=== PATIENT | female | born 1945 | race African-American/Black ===

== ENCOUNTER 2019-02-01 16:14 | Emergency (ER) | payer OTHER ==
[2019-02-01 17:27] LABS: Absolute Lymphocytes (CBC) 1.6 K/uL (0.7-4.9); Basophils % 0.5 % (0-1.3); Hematocrit 33.1 % (36.0-45.0); Lymphocytes % 15.3 % (15.3-44.8); RBC Red Blood Cell Count 3.56 M/uL (3.86-4.86)
[2019-02-01 17:33] LABS: Protime INR 2.31
[2019-02-01 17:47] LABS: Albumin 3.2 g/dL (3.4-5.0); Bilirubin Direct 0.3 mg/dL (0-0.2); Bilirubin Total 0.9 mg/dL (0.2-1.0); Magnesium 1.9 mg/dL (1.8-2.4); Potassium 4.1 mmol/L (3.5-5.1); Protein, Total 7.3 g/dL (6.4-8.2)
--- NOTE | 2019-02-01 19:23 | RAD REPORT ---
EXAM DESCRIPTION: Compa Single View02/01/2019 6:58 pm CLINICAL HISTORY: Shortness of breath COMPARISON: 2016 FINDINGS: Scoliosis involves the thoracolumbar spine The lungs appear clear of acute infiltrate. The heart is mildly enlarged
--- NOTE | 2019-02-01 21:08 | RAD REPORT ---
EXAM DESCRIPTION: US - Extremity Nonvascular Limited - 02/01/2019 7:20 pm CLINICAL HISTORY: Right groin pain and swelling COMPARISON: None FINDINGS: 3 centimeter heterogeneous fluid collection within the right groin likely represents a hem atoma. No flow is seen within this. IMPRESSION: 3 centimeter heterogeneous fluid collection likely a hematoma within the right groin
--- NOTE | 2019-02-01 21:09 | ER ---
Nurse's Notes [facility] Name: Mariluz Pastor Age: 73 yrs Sex: Female : 1945 Arrival Date: 02/01/2019 Time: 16:17 Bed 7 Private MD: Vasile Ochoa B Diagnosis: Localized swelling, mass and lump, lower limb-right groin hematoma Presentation: 02/01 16:28 Presenting complaint: Right groin pain and bruising after grin accessed during stroke hb eval 01/24. Transition of care: patient was not received from another setting of care. Onset of symptoms was February 01, 2019. Risk Assessment: Do you want to hurt yourself or someone else? Patient reports no desire to harm self or others. Initial Sepsis Screen: Does the patient meet any 2 criteria? No. Patient's initial sepsis screen is negative. Does the patient have a suspected source of infection? No. Patient's initial sepsis screen is negative. Care prior to arrival: None. 16:28 Method Of Arrival: Wheelchair hb 16:28 Acuity: VALENTIN 3 hb Triage Assessment: 16:41 General: Appears in no apparent distress. comfortable, obese, Behavior is calm, bp cooperative, appropriate for age. Pain: Complains of pain in right femoral area. EENT: No deficits noted. Neuro: No deficits noted. Cardiovascular: No deficits noted. Respiratory: No deficits noted. GI: No signs and/or symptoms were reported involving the gastrointestinal system. : No signs and/or symptoms were reported regarding the genitourinary system. Derm: No deficits noted. Musculoskeletal: No deficits noted. Historical: - Allergies: 16:31 No Known Allergies; hb - PSHx: 16:31 Hip SX; hb - Immunization history:: Adult Immunizations up to date. - Social history:: Smoking status: Patient/guardian denies using tobacco. - Ebola Screening: : No symptoms or risks identified at this time. Screenin:42 Abuse screen: Denies threats or abuse. Denies injuries from another. Nutritional bp screening: No deficits noted. Tuberculosis screening: No symptoms or risk factors identified. Fall Risk None identified. Assessment: 16:41 General: SEE TRIAGE NOTE. bp 18:24 Reassessment: Patient and/or family updated on plan of care and expected duration. Pain bp level reassessed. Patient is alert, oriented x 3, equal unlabored respirations, skin warm/dry/pink. ALL CURRENT ORDERS COMPLETED, U/S RESULTS PENDING. 19:21 General: Appears in no apparent distress. Behavior is calm, cooperative, appropriate bp for age. Pain: Denies pain. Neuro: Level of Consciousness is awake, alert, obeys commands, Oriented to person, place, time. Cardiovascular: Patient's skin is warm and dry. Respiratory: Airway is patent. Derm: Reports pt reports she had a femoral cath done recently and has been having pain in the area. Musculoskeletal: Circulation, motion, and sensation intact. 20:32 Reassessment: Patient and/or family updated on plan of care and expected duration. Pain ea level reassessed. Patient is alert, oriented x 3, equal unlabored respirations, skin warm/dry/pink. 21:55 Reassessment: Patient and/or family updated on plan of care and expected duration. Pain bb level reassessed. Patient is alert, oriented x 3, equal unlabored respirations, skin warm/dry/pink. pt verbalized understanding of and agrees to plan of care discharge instructions given pt assisted to exit via wheelchair accompanied by family. Vital Signs: 16:30 BP 106 / 70; Pulse 89; Resp 16; Temp 98.5; Pulse Ox 100% on R/A; Weight 83.91 kg; hb Height 5 ft. (152.40 cm); Pain 5/10; 17:33 BP 110 / 81; Pulse 93; Resp 16; Pulse Ox 98% ; bp 18:23 BP 100 / 81; Pulse 90; Resp 16; Pulse Ox 98% ; bp 19:23 BP 131 / 99; Pulse 94; Resp 18; Pulse Ox 99% on R/A; bp 20:32 BP 100 / 56; Pulse 93; Resp 18; Pulse Ox 99% on R/A; ea 21:56 BP 116 / 87; Pulse 99; Resp 16 S; Temp 97.7(O); Pulse Ox 100% on R/A; bb 16:30 Body Mass Index 36.13 (83.91 kg, 152.40 cm) hb ED Course: 16:17 Patient arrived in ED. as 16:17 Vasile Ochoa MD is Private Physician. as 16:30 Triage completed. hb 16:30 Arm band placed on. hb 16:37 James Armas PA is PHCP. cp 16:37 James Sinclair MD is Attending Physician. cp 16:37 Elian Jarvis, RN is Primary Nurse. bp 16:42 Patient has correct armband on for positive identification. Placed in gown. Bed in low bp position. Call light in reach. Side rails up X2. Adult w/ patient. 17:12 Ultrasound completed. lc3 17:15 Inserted saline lock: 22 gauge in right antecubital area, using aseptic technique. bp Blood collected. 17:39 US Extrmty Nonvasular Limited: history of femoral cath 1 week ago In Process EDMS Unspecified. 18:58 XRAY Chest (1 view) In Process Unspecified. EDMS 21:07 Neel Goyal MD is Referral Physician. cp 21:57 No provider procedures requiring assistance completed. IV discontinued, intact, bb bleeding controlled, No redness/swelling at site. Pressure dressing applied. Administered Medications: No medications were administered Outcome: 21:08 Discharge ordered by MD. cp 21:57 Discharged to home via wheelchair, with family. bb 21:57 Condition: stable 21:57 Discharge instructions given to patient, Instructed on discharge instructions, follow up and referral plans. no driving heavy equipment, medication usage, Demonstrated understanding of instructions, follow-up care, medications, Prescriptions given X 1. 21:57 Patient left the ED. bb Signatures: Dispatcher [employer] Traci Zendejas Brenda, RN RN James De Leon PA PA cp Cunningham, Laulita [id number] Baxter, Heather, RN RN hb Antunez, Elena, RN RN ea Peltier, Brian, RN RN bp
--- NOTE | 2019-02-01 21:09 | EDPHYS ---
Physician Documentation [facility] Name: Mariluz Pastor Age: 73 yrs Sex: Female : 1945 Arrival Date: 02/01/2019 Time: 16:17 Bed 7 Private MD: Vasile Ochoa B ED Physician James Sinclair HPI: 02/01 17:10 This 73 yrs old Black Female presents to ER via Wheelchair with complaints of Groin cp Pain. 17:11 The patient presents with pain, that is acute, swelling, tenderness, ecchymosis. The cp complaints affect the right femoral area and right groin. Associated signs and symptoms: Pertinent positives: warmth, ecchymosis, Pertinent negatives fever, numbness. Treatment prior to arrival includes: no previous treatment. Severity of symptoms: in the emergency department the symptoms are unchanged, despite home interventions. 17:21 Context: Patient was hospitalized at [facility] 1 week ago for stroke and had cp right femoral catheterization procedure. Patient reports increasing swelling, pain and ecchymosis to right groin area. Historical: - Allergies: 16:31 No Known Allergies; hb - PSHx: 16:31 Hip SX; hb - Immunization history:: Adult Immunizations up to date. - Social history:: Smoking status: Patient/guardian denies using tobacco. - Ebola Screening: : No symptoms or risks identified at this time. ROS: 17:15 Eyes: Negative for injury, pain, redness, and discharge. cp 17:15 Constitutional: Negative for body aches, chills, fever, poor PO intake. 17:15 ENT: Negative for drainage from ear(s), ear pain, sore throat, difficulty swallowing, difficulty handling secretions. 17:15 Cardiovascular: Negative for chest pain, palpitations. 17:15 Respiratory: Negative for cough, shortness of breath, wheezing. 17:15 Abdomen/GI: Negative for abdominal pain, nausea, vomiting, and diarrhea, black/tarry stool, rectal bleeding. 17:15 Back: Negative for pain at rest, pain with movement, radiated pain. 17:15 : Negative for urinary symptoms. 17:15 MS/extremity: Positive for ecchymosis, pain, swelling, tenderness, of the right femoral area and right groin, Negative for injury or acute deformity, decreased range of motion, paresthesias. 17:15 Neuro: Negative for altered mental status, headache, numbness. 17:15 All other systems are negative. Exam: 17:25 Constitutional: The patient appears in no acute distress, alert, awake, cp non-diaphoretic, non-toxic, well developed, well nourished, obese. 17:25 Head/Face: Normocephalic, atraumatic. cp 17:25 Eyes: Periorbital structures: appear normal, Conjunctiva: normal, no exudate, no injection, Sclera: no appreciated abnormality, Lids and lashes: appear normal, bilaterally. 17:25 ENT: External ear(s): are unremarkable, Nose: is normal, Mouth: Lips: moist, Oral mucosa: pink and intact, moist, Posterior pharynx: is normal, airway is patent, no erythema, no exudate. 17:25 Chest/axilla: Inspection: normal, Palpation: is normal, no crepitus, no tenderness. 17:25 Cardiovascular: Rate: normal, Rhythm: regular, JVD: is not appreciated. 17:25 Respiratory: the patient does not display signs of respiratory distress, Respirations: normal, no use of accessory muscles, no retractions, no splinting, no tachypnea, labored breathing, is not present, Breath sounds: are clear throughout, no decreased breath sounds, no stridor, no wheezing. 17:25 Abdomen/GI: Inspection: abdomen appears normal, Palpation: abdomen is soft and non-tender, in all quadrants. 17:25 Musculoskeletal/extremity: Extremities: grossly normal except: noted in the right femoral area and right groin: ecchymosis, pain, swelling, tenderness, ROM: limited passive range of motion due to pain, in the right leg, Perfusion: the extremity is normally perfused throughout, Sensation intact. 17:25 Skin: cellulitis, is not appreciated. 17:45 ECG was reviewed by the Attending Physician. cp Vital Signs: 16:30 BP 106 / 70; Pulse 89; Resp 16; Temp 98.5; Pulse Ox 100% on R/A; Weight 83.91 kg; hb Height 5 ft. (152.40 cm); Pain 5/10; 17:33 BP 110 / 81; Pulse 93; Resp 16; Pulse Ox 98% ; bp 18:23 BP 100 / 81; Pulse 90; Resp 16; Pulse Ox 98% ; bp 19:23 BP 131 / 99; Pulse 94; Resp 18; Pulse Ox 99% on R/A; bp 20:32 BP 100 / 56; Pulse 93; Resp 18; Pulse Ox 99% on R/A; ea 21:56 BP 116 / 87; Pulse 99; Resp 16 S; Temp 97.7(O); Pulse Ox 100% on R/A; bb 16:30 Body Mass Index 36.13 (83.91 kg, 152.40 cm) hb MDM: 16:38 Patient medically screened. cp 18:00 Differential diagnosis: hematoma, pseudoaneurysm. cp 20:45 Physician consultation: Neel Goyal MD was called at 20:45, was contacted at 20:45, regarding patient's condition, outpatient follow-up, next week, discussed results of labs, US that showed 3 cm hematoma in right groin area. Pain and swelling has been increasing over past [address] Goyal recommends outpatient f/u in clinic with patient to return to ED if pain swelling worsens. 21:07 Data reviewed: vital signs, nurses notes, lab test result(s), EKG, radiologic studies, cp ultrasound, I have discussed the patient's presentation/case with the attending Emergency Department Physician; and as a result, I will discharge patient. 02/01 17:05 Order name: Basic Metabolic Panel; Complete Time: 18:27 cp 02/01 18:27 Interpretation: Normal except: CL 108; GFR 66. cp 02/01 17:05 Order name: CBC with Diff; Complete Time: 17:31 cp 02/01 17:31 Interpretation: Normal except: RBC 3.56; HGB 11.5; HCT 33.1; RDW 15.7. cp / 17:05 Order name: LFT's; Complete Time: 18:27 cp 02/01 18:28 Interpretation: Normal except: AST 10; BILID 0.3; ALB 3.2; GLOB 4.1; A/G 0.8. cp 10/ 17:05 Order name: Magnesium; Complete Time: 18:27 cp 02/01 18:29 Interpretation: Within normal limits: MG 1.9. cp 02/01 17:05 Order name: NT PRO-BNP; Complete Time: 18:27 cp 02/01 18:29 Interpretation: Abnormal: NT PRO-BNP 736. cp 02/01 17:05 Order name: PT-INR; Complete Time: 17:46 cp 02/01 17:46 Interpretation: Abnormal: PT 26.4. cp 02/01 17:05 Order name: XRAY Chest (1 view); Complete Time: 21:50 cp 02/01 17:05 Order name: EKG; Complete Time: 17:06 cp 02/01 17:05 Order name: Cardiac monitoring; Complete Time: 17:06 cp 02/01 17:05 Order name: US Extrmty Nonvasular Limited: history of femoral cath 1 week ago; Complete cp Time: 21:50 02/01 17:05 Order name: Ptt, Activated; Complete Time: 17:46 cp 02/01 17:46 Interpretation: Abnormal: PTT 40.9. cp 02/01 20:50 Order name: Urine Microscopic Only; Complete Time: 21:50 cp 02/01 21:14 Order name: Urine Dipstick--Ancillary (enter results) em1 02/01 21:15 Order name: Urine Dipstick-Ancillary; Complete Time: 21:50 EDMS 02/01 17:05 Order name: EKG - Nurse/Tech; Complete Time: 17:33 cp 02/01 17:05 Order name: IV Saline Lock; Complete Time: 17:33 cp 02/01 17:05 Order name: Labs collected and sent; Complete Time: 17:33 cp 02/01 17:05 Order name: O2 Per Protocol; Complete Time: 17:06 cp 02/01 17:05 Order name: O2 Sat Monitoring; Complete Time: 17:06 cp 02/01 20:50 Order name: Urine Dipstick-Ancillary (obtain specimen); Complete Time: 21:08 cp EC:45 Rate is 99 beats/min. Rhythm is irregular. QRS interval is normal. QT interval is cp normal. T waves are Inverted in lead III. Interpreted by me. Reviewed by me. Administered Medications: No medications were administered Disposition: 02/01/19 21:08 Discharged to Home. Impression: Localized swelling, mass and lump, lower limb - right groin hematoma. - Condition is Stable. - Discharge Instructions: Hematoma. - Prescriptions for Ultram 50 mg Oral Tablet - take 1 tablet by ORAL route every 6 hours As needed; 20 tablet. - Medication Reconciliation Form, Thank You Letter, Antibiotic Education, Prescription Opioid Use form. - Follow up: Neel Goyal MD; When: 1 week; Reason: right groin hematoma. - Problem is new. - Symptoms have improved. Addendum: 02/03/2019 07:55 Co-signature as Attending Physician, James Sinclair MD I agree with the assessment and c villalpando plan of care. Signatures: Dispatcher [employer] EDPA James Sinclair MD MD cha Ballard, Brenda RN RN James De Leon PA PA cp Kim Cruz, RN RN Corrections: (The following items were deleted from the chart) 02/01 17:23 17:11 Context: Patient reports history of right femoral catheterization 1 week ago cp while hospitalized for TIA at [facility]. Patient reports increased swelling and pain to right groin, cp 21:57 21:08 02/01/2019 21:08 Discharged to Home. Impression: Localized swelling, mass and bb lump, lower limb - right groin hematoma. Condition is Stable. Forms are Medication Reconciliation Form, Thank You Letter, Antibiotic Education, Prescription Opioid Use. Follow up: Neel Goyal; When: 1 week; Reason: right groin hematoma. Problem is new. Symptoms have improved. cp
[2019-02-01 21:15] LABS: Urine Blood 1+ (NEG); Urine Glucose NEGATIVE (NEG); Urine Protein NEGATIVE (NEG); Urine Specific Gravity 1.025 (1.005-1.030); Urine pH 5.5 (5.0-7.0)
[2019-02-01 21:26] LABS: Urine Bacteria <20 /HPF (<20); Urine Culture Reflex Order NOT NEEDED
[2019-02-01 23:33] VITALS: BP 116/87; TEMP 97.7; O2SAT 100
--- NOTE | 2019-02-02 04:39 | EKG ---
Test Date: 2019-02-01 Test Time: 17:38:11 [employer] Professor: PACO MEASUREMENT RESULTS: Intervals: Rate: 99 IN: QRSD: 76 QT: 340 QTc: 436 [place]: P: IN: QRS: 36 T: -11 INTERPRETIVE STATEMENTS: Atrial fibrillation Minimal voltage criteria for LVH, may be normal variant Septal infarct, age undetermined Abnormal ECG Compared to ECG 02/24/2014 09:28:26 Left ventricular hypertrophy now present Myocardial infarct finding now present Sinus rhythm no longer present Electronically Signed On 02-02-19 04:38:25 CDT by Canelo Rizo
== END 2019-02-01 21:57 | disposition home or self-care (01) ==
LOC: ER 16:14
DX: S30.1XXA Contusion of abdominal wall, initial encounter (principal); Y84.0 Cardiac catheterization as the cause of abnormal reaction of the patient, or of later complication, without mention of misadventure at the time of the procedure; Y93.89 Activity, other specified; Y92.89 Other specified places as the place of occurrence of the external cause
CPT/HCPCS: 36415; 71045; 76882; 80048; 80076; 81003; 81015; 83735; 83880; 85025; 85610; 85730; 93005; 99284

== ENCOUNTER 2019-05-23 20:26 | Observation (INO) | payer OTHER ==
[2019-05-23 21:14] LABS: Urine Blood 1+ (NEG); Urine Glucose NEGATIVE (NEG); Urine Protein 3+ (NEG); Urine Specific Gravity 1.025 (1.005-1.030)
[2019-05-23 21:20] LABS: Urine RBC <5 /HPF (NONE SEEN)
[2019-05-23 21:21] LABS: Urine Bacteria 20-50 /HPF (<20); Urine Culture Reflex Order NOT NEEDED; Urine Mucus 1+ /HPF (NONE SEEN)
[2019-05-23] MEDS ORDERED: CEFTRIAXONE/SWI 1gm 1 GM/10 ML SYR ONE (21:39)
[2019-05-23] MEDS ORDERED: NA CHLORIDE 0.9% 1,000 ML ONE (21:39)
[2019-05-23 21:49] LABS: Absolute Lymphocytes (CBC) 0.8 K/uL (0.7-4.9); Basophils % 0.5 % (0-1.3); Hematocrit 47.4 % (36.0-45.0); Lymphocytes % 11.1 % (15.3-44.8); MPV 8.7 fL (7.6-11.3); RBC Red Blood Cell Count 5.12 M/uL (3.86-4.86)
[2019-05-23 21:56] LABS: Protime INR 1.3
[2019-05-23 22:08] LABS: ALT/SGPT 23 U/L (12-78); AST/SGOT 25 U/L (15-37); Albumin 2.1 g/dL (3.4-5.0); Alkaline Phosphatase 110 U/L (45-117); BUN Blood Urea Nitrogen 15 mg/dL (7-18); Bicarbonate 29 mmol/L (21-32); Bilirubin Direct 0.1 mg/dL (0-0.2); Bilirubin Total 0.3 mg/dL (0.2-1.0); Glucose Level 90 mg/dL (74-106); Lipase 129 U/L (73-393); Magnesium 1.9 mg/dL (1.8-2.4); NT PRO-BNP 1913 pg/mL (<125); Potassium 4.2 mmol/L (3.5-5.1); Protein, Total 7.6 g/dL (6.4-8.2); Sodium Level 137 mmol/L (136-145); Troponin (Emerg Dept Use Only) < 0.02 ng/mL (0.0-0.045)
[2019-05-23] MEDS ORDERED: ACETAMINOPHEN 325 MG TABLET ONE (22:20)
--- NOTE | 2019-05-23 22:49 | EDPHYS ---
Physician Documentation [facility] Name: Mariluz Pastor Age: 73 yrs Sex: Female : 1945 Arrival Date: 05/23/2019 Time: 20:27 Bed 19 Private MD: ED Physician James Sinclair HPI: 05/23 21:09 This 73 yrs old Black Female presents to ER via Wheelchair with complaints of Doesn't harper Feel Right. 21:09 weak, cough and tired. Onset: The symptoms/episode began/occurred 1 day(s) ago. harper Severity of symptoms: At their worst the symptoms were. The patient has not experienced similar symptoms in the past. Historical: - Allergies: 20:41 No Known Allergies; lp1 - Home Meds: 20:41 Xarelto 20 mg oral tab 1 tab once daily [Active]; spironolactone 25 mg Oral tab once lp1 daily [Active]; bupropion HCl 300 mg Oral Tb24 1 tab once daily [Active]; rosuvastatin 10 mg oral tab 1 tab once daily [Active]; duloxetine 30 mg oral cpDR 1 cap once daily [Active]; metoprolol tartrate 25 mg Oral tab 1 tab 2 times per day [Active]; amlodipine 5 mg tab 1 tab once daily [Active]; - PMHx: 20:41 CVA; lp1 - PSHx: 20:41 None; lp1 - Immunization history:: Adult Immunizations up to date, Flu vaccine is up to date. - Social history:: Smoking status: Patient denies any tobacco usage or history of. - Ebola Screening: : No symptoms or risks identified at this time. ROS: 21:10 Constitutional: Negative for fever, chills, and weight loss, Eyes: Negative for injury, harper pain, redness, and discharge, ENT: Negative for injury, pain, and discharge, Neck: Negative for injury, pain, and swelling, Cardiovascular: Negative for chest pain, palpitations, and edema, Abdomen/GI: Negative for abdominal pain, nausea, vomiting, diarrhea, and constipation, Back: Negative for injury and pain, : Negative for injury, bleeding, discharge, and swelling, MS/Extremity: Negative for injury and deformity, Skin: Negative for injury, rash, and discoloration, Neuro: Negative for headache, weakness, numbness, tingling, and seizure, Psych: Negative for depression, anxiety, suicide ideation, homicidal ideation, and hallucinations, Allergy/Immunology: Negative for hives, rash, and allergies, Endocrine: Negative for neck swelling, polydipsia, polyuria, polyphagia, and marked weight changes, Hematologic/Lymphatic: Negative for swollen nodes, abnormal bleeding, and unusual bruising. 21:10 Respiratory: Positive for cough, "sounds productive". Exam: 21:10 Constitutional: This is a well developed, well nourished patient who is awake, alert, harper and in no acute distress. Head/Face: Normocephalic, atraumatic. Eyes: Pupils equal round and reactive to light, extra-ocular motions intact. Lids and lashes normal. Conjunctiva and sclera are non-icteric and not injected. Cornea within normal limits. Periorbital areas with no swelling, redness, or edema. ENT: Nares patent. No nasal discharge, no septal abnormalities noted. Tympanic membranes are normal and external auditory canals are clear. Oropharynx with no redness, swelling, or masses, exudates, or evidence of obstruction, uvula midline. Mucous membranes moist. Neck: Trachea midline, no thyromegaly or masses palpated, and no cervical lymphadenopathy. Supple, full range of motion without nuchal rigidity, or vertebral point tenderness. No Meningismus. Chest/axilla: Normal chest wall appearance and motion. Nontender with no deformity. No lesions are appreciated. Abdomen/GI: Soft, non-tender, with normal bowel sounds. No distension or tympany. No guarding or rebound. No evidence of tenderness throughout. Back: No spinal tenderness. No costovertebral tenderness. Full range of motion. Female : Normal external genitalia. Skin: Warm, dry with normal turgor. Normal color with no rashes, no lesions, and no evidence of cellulitis. MS/ Extremity: Pulses equal, no cyanosis. Neurovascular intact. Full, normal range of motion. Neuro: Awake and alert, GCS 15, oriented to person, place, time, and situation. Cranial nerves II-XII grossly intact. Motor strength 5/5 in all extremities. Sensory grossly intact. Cerebellar exam normal. Normal gait. Psych: Awake, alert, with orientation to person, place and time. Behavior, mood, and affect are within normal limits. 21:10 Cardiovascular: Rate: tachycardic, Rhythm: regular, Pulses: Pulses are 4+ in bilateral radial, brachial, femoral, popliteal, posterior tibial and and dorsalis pedis arteries.. Heart sounds: normal, Edema: is not appreciated, JVD: is not appreciated. Vital Signs: 20:38 BP 101 / 69; Pulse 100; Resp 18; Temp 99.5(O); Pulse Ox 97% on R/A; Weight 77.11 kg lp1 (R); Height 5 ft. 0 in. (152.40 cm); Pain 0/10; 22:00 BP 121 / 79; Pulse 87; Resp 18; Pulse Ox 96% on R/A; wh 22:30 BP 121 / 100 Supine; Pulse 74; wh 22:30 BP 116 / 82 Sitting; Pulse 88; wh 22:30 BP 114 / 97 Standing; Pulse 94; wh 23:00 BP 108 / 93; Pulse 81; Resp 18; Pulse Ox 97% ; wh 20:38 Body Mass Index 33.20 (77.11 kg, 152.40 cm) lp1 MDM: 20:46 Patient medically screened. [facility] 21:10 Data reviewed: vital signs, nurses notes, lab test result(s), EKG, radiologic studies, [facility] plain films. 05/23 20:59 Order name: Urine Microscopic Only; Complete Time: 21:46 cm6 05/23 21:00 Order name: Urine Culture [facility] 05/23 21:04 Order name: Urine Dipstick--Ancillary (enter results); Complete Time: 21:46 ar5 05/23 21:08 Order name: Basic Metabolic Panel [facility] 05/23 21:08 Order name: CBC with Diff [facility] 05/23 21:08 Order name: LFT's [facility] 05/23 21:08 Order name: Magnesium; Complete Time: 22:12 [facility] 05/23 21:08 Order name: NT PRO-BNP; Complete Time: 22:12 [facility] 05/23 21:08 Order name: PT-INR; Complete Time: 22:12 [facility] 05/23 21:08 Order name: Troponin (emerg Dept Use Only); Complete Time: 22:12 [facility] 05/23 21:08 Order name: Flu; Complete Time: 22:12 [facility] 05/23 21:08 Order name: Blood Culture Adult (2) [facility] 05/23 21:08 Order name: Lipase; Complete Time: 22:12 [facility] 05/23 21:08 Order name: Basic Metabolic Panel; Complete Time: 22:12 [facility] 05/23 21:08 Order name: XRAY Chest (1 view) [facility] 05/23 21:08 Order name: CBC with Automated Diff [facility] 05/23 21:08 Order name: Liver (Hepatic) Function; Complete Time: 22:12 [facility] 05/23 23:01 Order name: Manual Differential [facility] 05/23 23:38 Order name: Urine Culture [facility] 05/24 05:29 Order name: Protime (+INR) [facility] 05/24 05:38 Order name: CKMB Creatine Kinase MB [facility] 05/24 05:38 Order name: Troponin I [facility] 05/24 07:05 Order name: Comprehensive Metabolic Panel [facility] 05/24 07:05 Order name: Lipid Profile [facility] 05/24 07:05 Order name: Magnesium [facility] 05/24 07:05 Order name: Thyroid Stimulating Hormone [facility] 05/24 07:44 Order name: Procalcitonin [facility] 05/24 07:56 Order name: Hemoglobin A1c [facility] 05/23 20:59 Order name: Urine Dipstick-Ancillary (obtain specimen); Complete Time: 21:03 cm6 05/23 21:08 Order name: EKG; Complete Time: 21:09 [facility] 05/23 21:08 Order name: Cardiac monitoring; Complete Time: 21:47 [facility] 05/23 21:08 Order name: EKG - Nurse/Tech; Complete Time: 21:47 [facility] 05/23 21:08 Order name: IV Saline Lock; Complete Time: 21:47 [facility] 05/23 21:08 Order name: Labs collected and sent; Complete Time: 21:47 [facility] 05/23 21:08 Order name: O2 Per Protocol; Complete Time: 21:47 [facility] 05/23 21:08 Order name: O2 Sat Monitoring; Complete Time: 21:47 [facility] 05/23 22:14 Order name: Orthostatics; Complete Time: 22:21 [facility] Administered Medications: 21:46 Drug: Rocephin 1 grams Route: IV; Rate: per protocol; Site: right antecubital; 05/24 01:02 Follow up: Response: No adverse reaction; IV Status: Completed infusion 05/23 21:47 Drug: NS 0.9% 500 ml Route: IV; Rate: bolus; Site: right antecubital; 05/24 01:02 Follow up: Response: No adverse reaction; IV Status: Completed infusion 05/23 22:13 Drug: NS 0.9% 1000 ml Route: IV; Rate: 125 ml/hr; Site: right antecubital; 05/24 01:02 Follow up: Response: No adverse reaction; IV Status: Infusion continued upon admission 05/23 22:21 Drug: Tylenol 650 mg Route: PO; 05/24 01:01 Follow up: Response: No adverse reaction Disposition: 05/23/19 22:48 Hospitalization ordered by Lucie Perez for Inpatient Admission. Preliminary diagnosis are Atrial fibrillation and flutter, Essential (primary) hypertension, Weakness. - Bed requested for Telemetry/MedSurg (Inpatient). - Status is Inpatient Admission. hb - Condition is Fair. - Problem is new. - Symptoms have improved. UTI on Admission? No Signatures: Dispatcher [employer] EDMS James Sinclair MD MD cha Pena, Laura, RN RN lp1 Pooja Quiroz RN RN Kim Cruz RN RN Habalo, Winsy Hernandez, Sarina Holder 6 Corrections: (The following items were deleted from the chart) 00:05/23 22:48 Hospitalization Ordered by Lucie Perez MD for Inpatient Admission. cg Preliminary diagnosis is Atrial fibrillation and flutter; Essential (primary) hypertension; Weakness. Bed requested for Telemetry/MedSurg (Inpatient). Status is Inpatient Admission. Condition is Fair. Problem is new. Symptoms have improved. UTI on Admission? No. harper 05/24 07:09 00:01 05/23/2019 22:48 Hospitalization Ordered by Lucie Perez MD for Inpatient eb Admission. Preliminary diagnosis is Atrial fibrillation and flutter; Essential (primary) hypertension; Weakness. Bed requested for [facility] ER HOLD. Status is Inpatient Admission. Condition is Fair. Problem is new. Symptoms have improved. UTI on Admission? No. cg 08:01 07:09 05/23/2019 22:48 Hospitalization Ordered by Lucie Perez MD for Inpatient hb Admission. Preliminary diagnosis is Atrial fibrillation and flutter; Essential (primary) hypertension; Weakness. Bed requested for Telemetry/MedSurg (Inpatient). Status is Inpatient Admission. Condition is Fair. Problem is new. Symptoms have improved. UTI on Admission? No. eb
--- NOTE | 2019-05-23 22:49 | ER ---
Nurse's Notes [facility] Name: Mariluz Pastor Age: 73 yrs Sex: Female : 1945 Arrival Date: 05/23/2019 Time: 20:27 Bed 19 Private MD: Diagnosis: Atrial fibrillation and flutter;Essential (primary) hypertension;Weakness Presentation: 05/23 20:37 Presenting complaint: states: Checked her BP and was reading high, pulse was lp1 104; Patient states feeling tired all day; Denies any pain. Transition of care: patient was not received from another setting of care. Onset of symptoms was May 23, 2019. Risk Assessment: Do you want to hurt yourself or someone else? Patient reports no desire to harm self or others. Initial Sepsis Screen: Does the patient meet any 2 criteria? No. Patient's initial sepsis screen is negative. Does the patient have a suspected source of infection? No. Patient's initial sepsis screen is negative. Care prior to arrival: None. 20:37 Method Of Arrival: Wheelchair lp1 20:37 Acuity: VALENTIN 3 lp1 Historical: - Allergies: 20:41 No Known Allergies; lp1 - Home Meds: 20:41 Xarelto 20 mg oral tab 1 tab once daily [Active]; spironolactone 25 mg Oral tab once lp1 daily [Active]; bupropion HCl 300 mg Oral Tb24 1 tab once daily [Active]; rosuvastatin 10 mg oral tab 1 tab once daily [Active]; duloxetine 30 mg oral cpDR 1 cap once daily [Active]; metoprolol tartrate 25 mg Oral tab 1 tab 2 times per day [Active]; amlodipine 5 mg tab 1 tab once daily [Active]; - PMHx: 20:41 CVA; lp1 - PSHx: 20:41 None; lp1 - Immunization history:: Adult Immunizations up to date, Flu vaccine is up to date. - Social history:: Smoking status: Patient denies any tobacco usage or history of. - Ebola Screening: : No symptoms or risks identified at this time. Screenin:00 Abuse screen: Denies threats or abuse. Denies injuries from another. Nutritional wh screening: No deficits noted. Tuberculosis screening: No symptoms or risk factors identified. Fall Risk None identified. Assessment: 21:00 General: Appears in no apparent distress. Behavior is calm, cooperative, appropriate wh for age. Pain: Denies pain. Neuro: Level of Consciousness is awake, alert, obeys commands, Oriented to person, place, time, situation, Appropriate for age. Cardiovascular: Heart tones S1 S2 Capillary refill < 3 seconds. Respiratory: Airway is patent Respiratory effort is even, unlabored, Respiratory pattern is regular, symmetrical. GI: Abdomen is round non-distended. : No signs and/or symptoms were reported regarding the genitourinary system. EENT: No signs and/or symptoms were reported regarding the EENT system. Derm: Skin is intact, is healthy with good turgor, Skin is pink, warm \T\ dry. normal. Musculoskeletal: Circulation, motion, and sensation intact. 22:00 Reassessment: Patient appears in no apparent distress at this time. No changes from previously documented assessment. Patient and/or family updated on plan of care and expected duration. Pain level reassessed. Patient is alert, oriented x 3, equal unlabored respirations, skin warm/dry/pink. 23:00 Reassessment: Patient appears in no apparent distress at this time. No changes from previously documented assessment. Patient and/or family updated on plan of care and expected duration. Pain level reassessed. Patient is alert, oriented x 3, equal unlabored respirations, skin warm/dry/pink. Patient denies pain at this time. Vital Signs: 20:38 BP 101 / 69; Pulse 100; Resp 18; Temp 99.5(O); Pulse Ox 97% on R/A; Weight 77.11 kg lp1 (R); Height 5 ft. 0 in. (152.40 cm); Pain 0/10; 22:00 BP 121 / 79; Pulse 87; Resp 18; Pulse Ox 96% on R/A; wh 22:30 BP 121 / 100 Supine; Pulse 74; wh 22:30 BP 116 / 82 Sitting; Pulse 88; wh 22:30 BP 114 / 97 Standing; Pulse 94; wh 23:00 BP 108 / 93; Pulse 81; Resp 18; Pulse Ox 97% ; wh 20:38 Body Mass Index 33.20 (77.11 kg, 152.40 cm) lp1 ED Course: 20:27 Patient arrived in ED. cl3 20:38 Triage completed. lp1 20:38 Arm band placed on. lp1 20:46 James Sinclair MD is Attending Physician. [facility] 21:00 Patient has correct armband on for positive identification. Placed in gown. Bed in low position. Call light in reach. Side rails up X 1. case monitor on. Pulse ox on. NIBP on. 21:23 XRAY Chest (1 view) In Process Unspecified. EDPR 21:30 Inserted saline lock: 20 gauge in right antecubital area, using aseptic technique. Blood collected. 21:46 Aylin Kent is Primary Nurse. 22:47 Lucie Perez MD is Hospitalizing Provider. [facility] 23:00 No provider procedures requiring assistance completed. Patient admitted, IV remains in place. Administered Medications: 21:46 Drug: Rocephin 1 grams Route: IV; Rate: per protocol; Site: right antecubital; 05/24 01:02 Follow up: Response: No adverse reaction; IV Status: Completed infusion 05/23 21:47 Drug: NS 0.9% 500 ml Route: IV; Rate: bolus; Site: right antecubital; 05/24 01:02 Follow up: Response: No adverse reaction; IV Status: Completed infusion 05/23 22:13 Drug: NS 0.9% 1000 ml Route: IV; Rate: 125 ml/hr; Site: right antecubital; 05/24 01:02 Follow up: Response: No adverse reaction; IV Status: Infusion continued upon admission 05/23 22:21 Drug: Tylenol 650 mg Route: PO; 05/24 01:01 Follow up: Response: No adverse reaction Outcome: 05/23 22:48 Decision to Hospitalize by Provider. [facility] 23:00 Admitted to ER Hold. Please see [facility] for further documentation. 23:00 Condition: stable 23:00 Instructed on the need for admit. 05/24 08:01 Patient left the ED. Signatures: Dispatcher [employer] EDPR James Sinclair MD MD cha Pena, Laura, RN RN lp1 Kim Cruz RN RN Aylin Kent Alen Wills cl3
[2019-05-23 23:01] LABS: Blood Morphology Comment NOT SEEN (NOT SEEN); Platelet Estimate ADEQ
[2019-05-23] MEDS ORDERED: ACETAMINOPHEN 325 MG TABLET PO PRN (23:37)
[2019-05-23] MEDS ORDERED: DOCUSATE NA 100 MG CAP PO PRN (23:37)
[2019-05-23] MEDS ORDERED: ONDANSETRON 4 MG/2 ML VIAL IV PRN (23:37)
--- NOTE | 2019-05-23 23:38 | P.HP ---
Certification for Inpatient Patient admitted to: Observation With expected LOS: <2 Midnights Practitioner: I am a practitioner with admitting privileges, knowledge of patient current condition, hospital course, and medical plan of care. Services: Services provided to patient in accordance with Admission requirements found in Title 42 Section 412.3 of the Code of Federal Regulations Patient History Date of Service: 05/24/19 Reason for admission: weakness, cough and urine frequency History of Present Illness: ren duran is a 73yoAAF w/ pmhx afib, cva in rehab admitted w/ weakness,cough and increased urinary frequency x 24hrs. she denies similar s/s and states that she woke up not "feeling well" and only noted that she had a mild productive cough with clear phelgm, associated w/ increased urinary frequency. stating that she has urinated up to 4 times while in the ER and when she has to urinate then she has to urinate or else its coming out on its own. she denies similar experience. she states that she started taking cough drops but did not take any OTC medication for colds/flu. She denies palpitations. she denies fever, chills, n/v/[place]al[place]/cp/sob, diarrhea/constipation, stomach/back pain, vision changes, CRAIG, sick contacts, changes in appetite, rashes/sores. denies tobacco, drugs and etoh. Allergies No Known Allergies Allergy (Verified 02/24/14 10:59) Home Medications: Amlodipine [Norvasc] 5 mg PO DAILY 05/24/19 Bupropion *Xl* [Wellbutrin XL] 300 mg PO DAILY 05/24/19 Duloxetine [Cymbalta Dalayed Release Pellets] 30 mg PO DAILY 05/24/19 Metoprolol Tartrate [Lopressor*] 25 mg PO BID 05/24/19 Rivaroxaban [Xarelto] 20 mg PO BEDTIME 05/24/19 Rosuvastatin [Crestor] 10 mg PO BEDTIME 05/24/19 Spironolactone 25 ng PO DAILY PRN 05/24/19 - Past Medical/Surgical History Diabetic: No -: hypertension -: r hip repair/fx - Social History Alcohol use: No CD- Drugs: No Caffeine use: No Review of Systems General: Weakness, Malaise Eyes: Unremarkable ENT: Unremarkable Respiratory: Cough, As per HPI Cardiovascular: Unremarkable Gastrointestinal: Unremarkable Genitourinary: Frequency, Urgency, As per HPI Musculoskeletal: Unremarkable Integumentary: Unremarkable Neurological: Weakness, As per HPI Physical Examination - Physical Exam General: Alert, In no apparent distress, Oriented x3, Obese, Other (appears to have so mild cognitive delay and is fraile. ) HEENT: Atraumatic Neck: Supple Respiratory: Clear to auscultation bilaterally, Normal air movement Cardiovascular: No edema, No murmurs, Irregular heart rate/rhythm Capillary refill: <2 Seconds Gastrointestinal: Normal bowel sounds, Soft and benign, Non-distended, Other ( obese abd) Musculoskeletal: No swelling Integumentary: No rashes, No breakdown Neurological: Normal affect, Other (gait not tested ) External genitalia: Deferred Rectal: Deferred - Studies Laboratory Data (last 24 hrs) 05/23/19 21:30: PT 15.2 H, INR 1.30 05/23/19 21:30: WBC 7.6, Hgb 15.6 H, Hct 47.4 H, Plt Count 276 05/23/19 21:30: Sodium 137, Potassium 4.2, BUN 15, Creatinine 1.15, Glucose 90, Magnesium 1.9, Total Bilirubin 0.3, AST 25, ALT 23, Alkaline Phosphatase 110, Lipase 129 Microbiology Data (last 24 hrs): 05/23/19 21:35 Nasopharnyx Influenza Type A Antigen Screen - Final 05/23/19 21:35 Nasopharnyx Influenza Type B Antigen Screen - Final Assessment and Plan - Plan 73yoAAF admitted w/ weakness - unclear etiology on eval in the ER pt w/ afib w/ RVR; flu A/B are negative. will obtain CT brain vs TTE for further evaluation will proceed w/ treatment of UTI based on s/s f/u w/ ur cx obtain a1c, lipid and tsh monitor on tele, use supplemental o2 PRN, and monitor HR afib w/ RVR - likely RVR 2/2 coughing vs infection will c/w abx will obtain procal lvl will monitor HR and add PRN med for improvement of RVR trend CE and monitor UOP daily weights h/o CVA - aware; no current focal weakness dvt ppx - SCD - Advance Directives Does patient have a Living Will: No Does patient have a Durable POA for Healthcare: No
[2019-05-23] MEDS: NA CHLORIDE 0.9% 1,000 ML IV SCH (23:45)
[2019-05-24] MEDS ORDERED: ACETAMINOPHEN 500 MG TAB PO PRN (03:18)
[2019-05-24 05:14] LABS: Protime INR 1.19
[2019-05-24 05:38] LABS: CKMB Creatine Kinase MB < 1.0 ng/mL (0.3-3.6); Troponin I < 0.02 ng/mL (0.0-0.045)
[2019-05-24 07:04] LABS: Albumin 1.9 g/dL (3.4-5.0); Bilirubin Total 0.3 mg/dL (0.2-1.0); Potassium 3.8 mmol/L (3.5-5.1); Protein, Total 7.2 g/dL (6.4-8.2); Thyroid Stimulating Hormone 1.49 uIU/mL (0.360-3.740)
--- NOTE | 2019-05-24 08:24 | RAD REPORT ---
EXAM DESCRIPTION: CT - Head Brain Wo Cont - 05/24/2019 7:24 am CLINICAL HISTORY: new onset weakness Headache, drowsiness, hypertension COMPARISON: CT-STROKE BRAIN W/O CONTRAST dated 02/23/2014 TECHNIQUE: All CT scans are performed using dose optimization technique as appropriate and may inclu de automated exposure control or mA/KV adjustment according to patient size. FINDINGS: No intracranial hemorrhage, hydrocephalus or extra-axial fluid collection.Mild brain atrop hy is present.No areas of brain edema or evidence of midline shift. There is a heavily calcified extr a-axial lesion along the right frontal convexity which appears unchanged. The paranasal sinuses and mastoids are clear. The calvarium is intact. IMPRESSION: No acute intracranial abnormality.
--- NOTE | 2019-05-24 08:35 | EKG ---
Test Date: 2019-05-23 Test Time: 21:51:23 Dispatcher Service: TESHA MEASUREMENT RESULTS: Intervals: Rate: 98 WV: QRSD: 70 QT: 300 QTc: 383 Dubois: P: WV: QRS: 78 T: 9 INTERPRETIVE STATEMENTS: Atrial fibrillation Nonspecific ST and T wave abnormality Abnormal ECG Compared to ECG 02/01/2019 17:38:11 ST (T wave) deviation now present Left ventricular hypertrophy no longer present Myocardial infarct finding no longer present Electronically Signed On 05-24-19 08:34:32 OFFICE SECRETARY by Canelo Rizo
--- NOTE | 2019-05-24 08:36 | RAD REPORT ---
EXAM DESCRIPTION: RAD - Chest Single View - 05/23/2019 9:52 pm CLINICAL HISTORY: COUGH Chest pain. COMPARISON: Chest Single View dated 02/01/2019; Chest Pa And Lat (2 Views) dated 07/29/2015; CHEST SIN GLE VIEW dated 02/24/2014; CHEST SINGLE VIEW dated 02/23/2014 FINDINGS: Portable technique limits examination quality. Mild interstitial pulmonary edema seen. The heart is moderately enlarged. No displaced fractures.Aort ic atherosclerosis. IMPRESSION: Mild CHF.
[2019-05-24 08:56] VITALS: BMI 35.6
[2019-05-24] MEDS: NA CHLORIDE 0.9% 1,000 ML IV SCH ×2 (09:13→21:03)
[2019-05-24 09:26] VITALS: O2SAT 96
[2019-05-24 12:28] LABS: CKMB Creatine Kinase MB < 1.0 ng/mL (0.3-3.6); Troponin I < 0.02 ng/mL (0.0-0.045)
--- NOTE | 2019-05-24 14:02 | P.PN ---
Subjective Date of Service: 05/24/19 Chief Complaint: weakness, cough and urine frequency Admitted overnight. Mild improvement with weakness. still with cough. Spouse at bedside. Physical Examination - Vital Signs Temperature: 98 F Blood Pressure: 122/87 Pulse: 90 Respirations: 18 Pulse Ox (%): 99 - Physical Exam General: Alert, In no apparent distress HEENT: Atraumatic, PERRLA, EOMI Neck: Supple, JVD not distended Respiratory: Clear to auscultation bilaterally, Normal air movement Cardiovascular: Normal S1 S2, Irregular heart rate/rhythm Gastrointestinal: Normal bowel sounds, No tenderness Musculoskeletal: No tenderness Integumentary: No rashes Neurological: Normal speech, Normal tone, Normal affect Lymphatics: No axilla or inguinal lymphadenopathy - Studies Laboratory Data (last 24 hrs) 05/23/19 21:30: PT 15.2 H, INR 1.30 05/23/19 21:30: WBC 7.6, Hgb 15.6 H, Hct 47.4 H, Plt Count 276 05/23/19 21:30: Sodium 137, Potassium 4.2, BUN 15, Creatinine 1.15, Glucose 90, Magnesium 1.9, Total Bilirubin 0.3, AST 25, ALT 23, Alkaline Phosphatase 110, Lipase 129 Microbiology Data (last 24 hrs): 05/23/19 21:35 Nasopharnyx Influenza Type A Antigen Screen - Final 05/23/19 21:35 Nasopharnyx Influenza Type B Antigen Screen - Final Medications List Reviewed: Yes Assessment And Plan - Plan Ms. Pastor is 83yoAAF admitted w/ generalized weakness. #General weakness - unclear etiology, likely related to afib w/ RVR vs acute dehydration vs suspected UTI; flu A/B are negative. -CT brain is unremarkable. Serial trop neg. -Mild improvement. PT/OT -TSH is unremarkable. #Symptomatic UTI- UA is not very impressive. -Procal is elevated. -continue IV abx and follow urine culture #Hypovolemia- hemoconcentrated. On aldactone at home, will hold. -continue IVF -recheck labs. -monitor on tele, use supplemental o2 PRN, and monitor HR #Afib w/ RVR - RVR is resolved. On OAC at home, will resume. -continue rate control. -TTE ordered. #h/o CVA - aware; no current focal weakness dvt ppx - SCD Dispo- possible d.c in am pending clinical improvement and urine culture.
--- NOTE | 2019-05-24 14:27 | ECHO ---
HEIGHT: 5 ft 0 in WEIGHT: 182 lb 6.4 oz DATE OF STUDY: 05/24/[address]: Lucie Perez 2-DIMENSIONAL: YES M.MODE: YES DOPPLER: YES COLOR FLOW: YES TDS: NO PORTABLE: NO DEFINITY: NO BUBBLE STUDY: NO DIAGNOSIS: ATRIAL FIBRILLATOIN CARDIAC HISTORY: CATHERIZATION: YES SURGERY: NO PROSTHETIC VALVE: NO PACEMAKER: NO MEASUREMENTS (cm) DIASTOLIC (NORMALS) SYSTOLIC (NORMALS) IVSd 1.2 (0.6-1.2) LA Diam 4.0 (1.9-4.0) LVEF 79% LVIDd 3.6 (3.5-5.7) LVIDs 1.9 (2.0-3.5) %FS 46% LVPWd 1.1 (0.6-1.2) Ao Diam 2.5 (2.0-3.7) 2 DIMENSIONAL ASSESSMENT: RIGHT ATRIUM: NORMAL LEFT ATRIUM: DILATED RIGHT VENTRICLE: NORMAL LEFT VENTRICLE: NORMAL TRICUSPID VALVE: NORMAL MITRAL VALVE: NORMAL PULMONIC VALVE: NORMAL AORTIC VALVE: NORMAL PERICARDIAL EFFUSION: NONE AORTIC ROOT: NORMAL LEFT VENTRICULAR WALL MOTION: NORMAL. DOPPLER/COLOR FLOW: MILD MITRAL AND TRICUSPID REGURGITATION. NORMAL RIGHT VENTRICULAR SYSTOLIC PRESSURE. COMMENTS: NORMAL LEFT VENTRICULR EJECTION FRACTION. DILATED LEFT ATRIUM. MILD MITRAL AND TRICUSPID REGURGITATION. TECHNOLOGIST: HAKEEM PETERSEN
[2019-05-24] MEDS: DULOXETINE 30 MG CAP PO SCH (15:00)
[2019-05-24 15:02] LABS: Basophils % 0.7 % (0-1.3); Hematocrit 44.9 % (36.0-45.0); Lymphocytes % 14.1 % (15.3-44.8); MPV 8.6 fL (7.6-11.3); RBC Red Blood Cell Count 4.84 M/uL (3.86-4.86)
[2019-05-24 15:10] LABS: Albumin 1.9 g/dL (3.4-5.0); Bilirubin Total 0.2 mg/dL (0.2-1.0); Protein, Total 7.1 g/dL (6.4-8.2)
[2019-05-24 15:56] LABS: Platelet Estimate ADEQ
[2019-05-24 15:57] LABS: Blood Morphology Comment NOT SEEN (NOT SEEN)
[2019-05-24] MEDS: METOPROLOL TAR 25 MG TAB PO SCH (16:27)
[2019-05-24] MEDS ORDERED: CEFTRIAXONE 1 GM/NS 50 ML 1 GM/50 ML BAG IV SCH (19:00)
[2019-05-24 19:59] LABS: CKMB Creatine Kinase MB < 1.0 ng/mL (0.3-3.6); Troponin I < 0.02 ng/mL (0.0-0.045)
[2019-05-24] MEDS ORDERED: CEFTRIAXONE/SWI 1gm 1 GM/10 ML SYR IV SCH (21:00)
[2019-05-24] MEDS ORDERED: ROSUVASTATIN 10 MG TAB PO SCH (21:00)
[2019-05-24] MEDS ORDERED: RIVAROXABAN 20 MG TABLET PO SCH (21:00)
[2019-05-25] MEDS: NA CHLORIDE 0.9% 1,000 ML IV SCH (05:29)
[2019-05-25] MEDS: METOPROLOL TAR 25 MG TAB PO SCH (05:29)
[2019-05-25] MEDS: DULOXETINE 30 MG CAP PO SCH (09:25)
--- NOTE | 2019-05-25 10:33 | P.PN ---
Subjective Date of Service: 05/25/19 Chief Complaint: weakness, Subjective: Improving (Patient is doing well no new complaints admitted with weakness complaining of vomiting) Review of Systems Unremarkable Physical Examination - Vital Signs Temperature: 98.1 F Blood Pressure: 142/67 Pulse: 71 Respirations: 20 Pulse Ox (%): 98 - Physical Exam General: Alert, Oriented x3 HEENT: Atraumatic Neck: Supple Respiratory: Clear to auscultation bilaterally Cardiovascular: No edema, Regular rate/rhythm - Studies Medications List Reviewed: Yes Assessment & Plan - Problems (Diagnosis) (1) Weakness Current Visit: Yes Status: Acute Plan: Patient is 73 years of age admitted with weakness and some vomiting chronic AFib doing well labs reviewed no evidence of sepsis plan to ambulate plane the some vomiting after eating some spaghetti vital signs stable the time of discharge patient was alert oriented responsive cooperative patient is in chronic AFib stat chest x-ray shows mild CHF BNP was elevated
--- NOTE | 2019-05-25 10:35 | P.DS ---
Admission Date: 05/23/19 Discharge Date: 05/25/19 Disposition: ROUTINE DISCHARGE Discharge Condition: GOOD Reason for Admission: weakness, - Problems (1) Weakness Current Visit: Yes Status: Acute Brief History of Present Illness: Patient is 73 years of age admitted with some weakness and vomiting unremarkable course Hospital Course: Patient's echocardiogram was normal possible mild CHF BNP was elevated no evidence of sepsis please see progress note patient discharged in satisfactory condition spironolactone double to 25 mg twice a day with fluid and salt restriction Vital Signs/Physical Exam: Temp Pulse Resp BP Pulse Ox 98.1 F 71 20 142/67 H 98 05/25/19 10:33 05/25/19 10:33 05/25/19 10:33 05/25/19 10:33 05/25/19 10:33 Laboratory Data at Discharge: WBC 6.9 K/uL (4.3-10.9) 05/24/19 14:27 Hgb 14.8 g/dL (12.0-15.0) 05/24/19 14:27 Hct 44.9 % (36.0-45.0) 05/24/19 14:27 Plt Count 275 K/uL (152-406) 05/24/19 14:27 PT 14.0 SECONDS (9.5-12.5) H 05/24/19 04:49 INR 1.19 05/24/19 04:49 Sodium 138 mmol/L (136-145) 05/24/19 14:27 Potassium 4.0 mmol/L (3.5-5.1) 05/24/19 14:27 BUN 14 mg/dL (7-18) 05/24/19 14:27 Creatinine 0.97 mg/dL (0.55-1.3) 05/24/19 14:27 Glucose 104 mg/dL (74-106) 05/24/19 14:27 Magnesium 2.0 mg/dL (1.8-2.4) 05/24/19 06:00 Total Bilirubin 0.2 mg/dL (0.2-1.0) 05/24/19 14:27 AST 24 U/L (15-37) 05/24/19 14:27 ALT 18 U/L (12-78) 05/24/19 14:27 Alkaline Phosphatase 95 U/L (45-117) 05/24/19 14:27 Troponin I < 0.02 ng/mL (0.0-0.045) 05/24/19 19:25 Triglycerides 83 mg/dL (<150) 05/25/19 04:55 Cholesterol 197 mg/dL (<200) 05/25/19 04:55 HDL Cholesterol 84 mg/dL (40-60) H 05/25/19 04:55 Cholesterol/HDL Ratio 2.35 05/25/19 04:55 Lipase 129 U/L (73-393) 05/23/19 21:30 Home Medications: Amlodipine [Norvasc*] 5 mg PO DAILY 05/24/19 Bupropion *Xl* [Wellbutrin XL*] 300 mg PO DAILY 05/24/19 Duloxetine [Cymbalta *] 30 mg PO DAILY 05/24/19 Metoprolol Tartrate [Lopressor*] 25 mg PO BID 05/24/19 Rivaroxaban [Xarelto] 20 mg PO BEDTIME 05/24/19 Rosuvastatin [Crestor*] 10 mg PO BEDTIME 05/24/19 Spironolactone 25 ng PO BID 30 Days tablet 05/25/19 New Medications: Spironolactone 25 ng PO BID 30 Days tablet Patient Discharge Instructions: Advice patient to increase the spironolactone to 25 mg twice a day fluid restriction 1200 cc low-salt diet and follow-up with comparison shopper in 1 or 2 weeks Diet: Low sodium Activity: Ad sy
[2019-05-25 12:09] VITALS: BP 135/55; TEMP 97.3
== END 2019-05-25 14:50 | disposition home or self-care (01) ==
LOC: ER 20:26 → ERHOLD 23:27 → 4TH 05-24 07:37
PROVIDERS: ADMIT Internal Medicine; ATTEND Internal Medicine
DX: R53.1 Weakness (principal); R11.10 Vomiting, unspecified; I48.20 Chronic atrial fibrillation, unspecified; I10 Essential (primary) hypertension; Z86.73 Personal history of transient ischemic attack (TIA), and cerebral infarction without residual deficits
CPT/HCPCS: 36415; 70450; 71045; 80048; 80053; 80061; 80076; 81003; 81015; 82553; 83036; 83690; 83735; 83880; 84145; 84443; 84484; 85025; 85610; 87040; 87086; 87088; 87804; 93005; 93306; 96365; 96366; 97116; 97161; 97530; 99285; G0378; J0696; J2405; J7030

== ENCOUNTER 2021-01-15 14:28 | Emergency (ER) | payer OTHER ==
--- NOTE | 2021-01-15 16:28 | RAD REPORT ---
EXAM DESCRIPTION: Compa Single View01/15/2021 4:08 pm CLINICAL HISTORY: Chest pain COMPARISON: 2019 FINDINGS: Upper lobe vessels are prominent indicative of pulmonary venous hypertension. The lungs appear clear of acute infiltrate. The heart is mildly enlarged Scoliosis involves the spine
[2021-01-15 17:13] LABS: Absolute Lymphocytes (CBC) 1.5 K/uL (0.7-4.9); Basophils % 0.4 % (0-1.3); Hematocrit 46.2 % (36.0-45.0); Lymphocytes % 18.8 % (15.3-44.8); MPV 8.5 fL (7.6-11.3); RBC Red Blood Cell Count 4.92 M/uL (3.86-4.86)
[2021-01-15 17:14] LABS: Protime INR 1.08
[2021-01-15 17:36] LABS: ALT/SGPT 19 U/L (12-78); Albumin 3.8 g/dL (3.4-5.0); Alkaline Phosphatase 94 U/L (45-117); BUN Blood Urea Nitrogen 10 mg/dL (7-18); Bicarbonate 28 mmol/L (21-32); Bilirubin Direct 0.1 mg/dL (0-0.2); Bilirubin Total 0.6 mg/dL (0.2-1.0); Glucose Level 101 mg/dL (74-106); NT PRO-BNP 1218 pg/mL (<125); Protein, Total 8.8 g/dL (6.4-8.2); Sodium Level 142 mmol/L (136-145); Troponin (Emerg Dept Use Only) < 0.02 ng/mL (0.0-0.045)
[2021-01-15 17:41] LABS: AST/SGOT 21 U/L (15-37); Magnesium 2.2 mg/dL (1.8-2.4)
[2021-01-15] MEDS ORDERED: cloNIDine HCL 0.1 MG TAB ONE (18:27)
[2021-01-15] MEDS ORDERED: AMLODIPINE 10 MG TAB ONE (19:12)
--- NOTE | 2021-01-15 21:10 | RAD REPORT ---
EXAM DESCRIPTION: CT - Head Brain Wo Cont - 01/15/2021 8:58 pm CLINICAL HISTORY: Head injury with headache COMPARISON: 2013 TECHNIQUE: Computed axial tomography of the head was obtained. IV contrast was not requested. All CT scans are performed using dose optimization technique as appropriate and may include automated exposure control or mA/KV adjustment according to patient size. FINDINGS: An intracranial bleed is not seen . The ventricles are normal in caliber. No extra-axial fluid collection is noted. A 13 millimeter low-density area within the white matter of the right parietal lobe has the appearanc e of an old infarction. . Fluid within the sinuses/ mastoids is not seen. IMPRESSION: No acute intracranial abnormality is seen. If patient's symptoms persist MRI of the bra in would be recommended.
[2021-01-15 22:52] LABS: Urine Blood Trace-lysed (Negative); Urine Glucose Negative (Negative); Urine Protein Negative (Negative)
--- NOTE | 2021-01-15 23:03 | ER ---
Nurse's Notes [facility] Name: Mariluz Pastor Age: 75 yrs Sex: Female : 1945 Arrival Date: 01/15/2021 Time: 14:29 Bed 14 Private MD: Vasile Ochoa B Diagnosis: Uncontrolled Hypertension;Weakness-generalized Presentation: 01/15 14:53 Chief complaint: Spouse and/or significant other states: home health nurse came to see iw her and her BP was over 200 systolic, takes amlodipine and another BP medication, pt has been sleeping a lot today , can't hardly walk bc she feels weak, usually uses a walker , pt fell earlier this week and her cane hit her in the head and now her head is hurting , pt did not take her BP medicine last night or this morning. Coronavirus screen: At this time, the client does not indicate any symptoms associated with coronavirus-19. Ebola Screen: Patient negative for fever greater than or equal to 101.5 degrees Fahrenheit, and additional compatible Ebola Virus Disease symptoms Patient denies exposure to infectious person. Patient denies travel to an Ebola-affected area in the 21 days before illness onset. No symptoms or risks identified at this time. Initial Sepsis Screen: Does the patient meet any 2 criteria? No. Patient's initial sepsis screen is negative. Does the patient have a suspected source of infection? No. Patient's initial sepsis screen is negative. Risk Assessment: Do you want to hurt yourself or someone else? Patient reports no desire to harm self or others. Onset of symptoms was January 15, 2021. 14:53 Method Of Arrival: Wheelchair iw 14:53 Acuity: VALENTIN 3 iw Triage Assessment: 15:00 General: Appears distressed, uncomfortable, obese, Behavior is cooperative, appropriate bp for age, anxious. Pain: Complains of pain in right leg and left leg. EENT: No deficits noted. Neuro: Level of Consciousness is awake, alert, obeys commands, Oriented to Appropriate for age. Cardiovascular: Rhythm is sinus rhythm. Respiratory: No deficits noted. GI: No signs and/or symptoms were reported involving the gastrointestinal system. : No signs and/or symptoms were reported regarding the genitourinary system. Derm: No deficits noted. Musculoskeletal: No deficits noted. Historical: - Allergies: 14:56 No Known Allergies; iw - Home Meds: 14:56 amlodipine 5 mg tab 1 tab once daily [Active]; bupropion HCl 300 mg Oral Tb24 1 tab iw once daily [Active]; duloxetine 30 mg Oral cpDR 1 cap once daily [Active]; metoprolol tartrate 25 mg Oral tab 1 tab 2 times per day [Active]; rosuvastatin 10 mg Oral tab 1 tab once daily [Active]; spironolactone 25 mg Oral tab once daily [Active]; Xarelto 20 mg Oral tab 1 tab once daily [Active]; - PMHx: 14:56 CVA; Hypertensive disorder; iw - Immunization history:: Client reports receiving the 2nd dose of the Covid vaccine. - Social history:: Smoking status: Patient denies any tobacco usage or history of. Screenin:00 Abuse screen: Denies threats or abuse. Denies injuries from another. Nutritional bp screening: No deficits noted. Tuberculosis screening: No symptoms or risk factors identified. Fall Risk None identified. 01/16 01:18 The patient is alert, able to follow commands. The patient does not exhibit slurred or bs2 garbled speech The patient is not exhibiting difficulty speaking. The patient does not exhibit difficulty understanding words. The patient is able to swallow own secretions with no drooling or need for suction. Patient tolerated one teaspoon of water. No drooling, immediate coughing, gurgling, or clearing of the throat was noted. The patient tolerated 90mL of water. No drooling, immediate coughing, gurgling, or clearing of the throat was noted. The patient passed the bedside swallow screening. Oral medications may be given as ordered. Contact Physician for further diet orders. Assessment: 01/15 15:00 General: SEE TRIAGE NOTE. bp 17:00 Reassessment: No changes from previously documented assessment. Patient and/or family bp updated on plan of care and expected duration. Pain level reassessed. 01/16 05:36 Reassessment: pt accepted to [facility] stroke unit C at [address] Haynes. bb Vital Signs: 01/15 14:53 BP 190 / 86; Pulse 81; Resp 16; Temp 97.4; Pulse Ox 100% on R/A; iw 16:00 BP 208 / 104; Pulse 85; Resp 17; Pulse Ox 99% ; bp 17:00 BP 197 / 100; Pulse 82; Resp 18; Pulse Ox 99% ; bp 18:00 BP 205 / 96; Pulse 89; Resp 16; Pulse Ox 100% ; bp 19:00 BP 214 / 98; Pulse 76; Resp 16; Pulse Ox 100% ; bp 18 05:33 Weight 90 kg (R); Height 5 ft. 5 in. (165.10 cm) (R); bb 05:33 Body Mass Index 33.02 (90.00 kg, 165.10 cm) bb NIH Stroke Scale Scores: 05:47 NIHSS Score: 15 kc4 ED Course: 01/15 14:29 Patient arrived in ED. as 14:29 Vasile Ochoa MD is Private Physician. as 14:56 Triage completed. iw 14:57 Arm band placed on. iw 15:21 Elian Jarvis, ALCON is Primary Nurse. bp 16:00 Patient has correct armband on for positive identification. Bed in low position. Call bp light in reach. Side rails up X2. Adult w/ patient. 16:00 Inserted saline lock: 22 gauge in right forearm, using aseptic technique. Blood bp collected. 16:08 XRAY Chest (1 view) In Process Unspecified. EDMS 16:32 Dutch James MD is Attending Physician. kdr 19:18 Attending Physician role handed off by Dutch James MD 7 19:18 Joshua Gallego MD is Attending Physician. mh7 20:58 CT Head Brain wo Cont In Process Unspecified. EDMS 23:01 Bartolo Hernandez MD is Referral Physician. 7 01/16 00:16 Hong Iqbal MD is Hospitalizing Provider. mh7 01:35 CT Head Angio In Process Unspecified. EDMS 01:[address] In Process Unspecified. EDMS Administered Medications: 01/15 18:00 Drug: cloNIDine 0.1 mg Route: PO; bp 19:22 Follow up: Response: No adverse reaction bp 18:50 Drug: amLODIPine 10 mg Route: PO; bp 19:23 Follow up: Response: No adverse reaction bp 01/16 01:18 Drug: foLIC Acid 1 mg Route: IVPB; Site: right antecubital; bs2 01:38 Follow up: IV Status: Completed infusion bs2 01:42 Drug: Aspirin Chewable Tablet 324 mg Route: PO; bs2 Outcome: 01/15 23:03 Discharge ordered by MD. simmons 01/16 00:18 Decision to Hospitalize by Provider. [facility] 06:54 Patient left the ED. dylon NIH Stroke Scale - NIH Stroke Score Date: 01/16/2021 Time: 05:47 Total Score = 15 1a. Level of Consciousness (LOC) - 0(Alert) 1b. Level of Consciousness (LOC) (Month \T\ Age) - 0(Both) 1c. LOC Commands (Open \T\ Closes Eyes/Dry Cure Worker) - 1(One) 2. Best Gaze (Lateral Gaze Paresis) - 1(Partial gaze palsy) 3. Visual Field Loss - 2(Complete hemianopia) 4. Facial Palsy - 2(Partial paralysis) 5a. Left Arm: Motor (10-second hold) - 1(Drift) 5b. Right Arm: Motor (10-second hold) - 0(No drift) 6a. Left Leg: Motor (5-second hold - always test supine) - 3(No effort against gravity) 6b. Right Leg: Motor (5-second hold - always test supine) - 2(Drift, some effort against gravity) 7. Limb Ataxia (finger/nose \T\ heel/puckett - test with eyes open) - 1(Present in one limb) 8. Sensory Loss (pinprick arms/legs/face) - 1(Mild to moderate loss) 9. Best Language: Aphasia (description/naming/reading) - 0(No aphasia) 10. Dysarthria (speech clarity - read or repeat words) - 0(Normal) 11. Extinction and Inattention (visual/tactile/auditory/spatial/personal) - 1(Present) Initials: kc4 Signatures: Dispatcher [employer] EDMS Dutch James MD MD kdr Martinez, Amelia as Ballard, Brenda RN RN bb Bessie Epps RN RN iw Elian Jarvis RN RN bp Holmes, Maurice, MD MD 7 Vicki Bliss RN RN bs2 Sandra Fuentes kc4 Corrections: (The following items were deleted from the chart) 05:48 03:01 NIHSS Score: 15 bs2 kc4
--- NOTE | 2021-01-15 23:03 | EDPHYS ---
Physician Documentation [facility] Name: Mariluz Pastor Age: 75 yrs Sex: Female : 1945 Arrival Date: 01/15/2021 Time: 14:29 Bed 14 Private MD: Vasile Ochoa B ED Physician Joshua Gallego HPI: 01/15 20:05 This 75 yrs old Black Female presents to ER via Wheelchair with complaints of High mh7 Blood Pressure. 20:05 The patient has elevated blood pressure and discovered this at home, with a home device.mh7 20:05 Onset: The symptoms/episode began/occurred today. Modifying factors: The symptoms are mh7 aggravated by Medication noncompliance, The symptoms are alleviated by prescription meds. 20:05 Associated signs and symptoms: Pertinent positives: headache, weakness, Headache mh7 occurred after accidentally hitting her head against a cane 3 days ago. Weakness is generalized., Pertinent negatives: chest pain, dizziness, dyspnea, lightheadedness, nausea, visual changes, vomiting. Severity of symptoms: At its worst the blood pressure was 200 mm Hg, in the emergency department the blood pressure is improved, markedly, 161 mm Hg. Historical: - Allergies: 14:56 No Known Allergies; iw - Home Meds: 14:56 amlodipine 5 mg tab 1 tab once daily [Active]; bupropion HCl 300 mg Oral Tb24 1 tab iw once daily [Active]; duloxetine 30 mg Oral cpDR 1 cap once daily [Active]; metoprolol tartrate 25 mg Oral tab 1 tab 2 times per day [Active]; rosuvastatin 10 mg Oral tab 1 tab once daily [Active]; spironolactone 25 mg Oral tab once daily [Active]; Xarelto 20 mg Oral tab 1 tab once daily [Active]; - PMHx: 14:56 CVA; Hypertensive disorder; iw - Immunization history:: Client reports receiving the 2nd dose of the Covid vaccine. - Social history:: Smoking status: Patient denies any tobacco usage or history of. ROS: 20:05 Constitutional: Negative for fever, chills, and weight loss, Eyes: Negative for injury, mh7 pain, redness, and discharge, ENT: Negative for injury, pain, and discharge, Neck: Negative for injury, pain, and swelling, Cardiovascular: Negative for chest pain, palpitations, and edema, Respiratory: Negative for shortness of breath, cough, wheezing, and pleuritic chest pain, Abdomen/GI: Negative for abdominal pain, nausea, vomiting, diarrhea, and constipation, Back: Negative for injury and pain, : Negative for injury, bleeding, discharge, and swelling, MS/Extremity: Negative for injury and deformity, Skin: Negative for injury, rash, and discoloration, Psych: Negative for depression, anxiety, suicide ideation, homicidal ideation, and hallucinations, Allergy/Immunology: Negative for hives, rash, and allergies, Endocrine: Negative for neck swelling, polydipsia, polyuria, polyphagia, and marked weight changes, Hematologic/Lymphatic: Negative for swollen nodes, abnormal bleeding, and unusual bruising. Exam: 20:35 Head/Face: Normocephalic, atraumatic. Eyes: Pupils equal round and reactive to light, mh7 extra-ocular motions intact. Lids and lashes normal. Conjunctiva and sclera are non-icteric and not injected. Cornea within normal limits. Periorbital areas with no swelling, redness, or edema. Neck: Trachea midline, no thyromegaly or masses palpated, and no cervical lymphadenopathy. Supple, full range of motion without nuchal rigidity, or vertebral point tenderness. No Meningismus. Chest/axilla: Normal chest wall appearance and motion. Nontender with no deformity. No lesions are appreciated. Cardiovascular: Regular rate and rhythm with a normal S1 and S2. No gallops, murmurs, or rubs. Normal PMI, no JVD. No pulse deficits. Respiratory: Lungs have equal breath sounds bilaterally, clear to auscultation and percussion. No rales, rhonchi or wheezes noted. No increased work of breathing, no retractions or nasal flaring. Abdomen/GI: Soft, non-tender, with normal bowel sounds. No distension or tympany. No guarding or rebound. No evidence of tenderness throughout. Back: No spinal tenderness. No costovertebral tenderness. Full range of motion. Skin: Warm, dry with normal turgor. Normal color with no rashes, no lesions, and no evidence of cellulitis. MS/ Extremity: Pulses equal, no cyanosis. Neurovascular intact. Full, normal range of motion. 20:35 Constitutional: This is a well developed, well nourished patient who is awake, alert, mh7 and in no acute distress. Neuro: Awake and alert, GCS 15, oriented to person, place, time, and situation. Cranial nerves II-XII grossly intact. Motor strength 5/5 in all extremities. Sensory grossly intact. Cerebellar exam normal. Normal gait. Psych: Awake, alert, with orientation to person, place and time. Behavior, mood, and affect are within normal limits. 01/16 08:13 ECG was reviewed by the Attending Physician. kdr Vital Signs: 01/15 14:53 BP 190 / 86; Pulse 81; Resp 16; Temp 97.4; Pulse Ox 100% on R/A; iw 16:00 BP 208 / 104; Pulse 85; Resp 17; Pulse Ox 99% ; bp 17:00 BP 197 / 100; Pulse 82; Resp 18; Pulse Ox 99% ; bp 18:00 BP 205 / 96; Pulse 89; Resp 16; Pulse Ox 100% ; bp 19:00 BP 214 / 98; Pulse 76; Resp 16; Pulse Ox 100% ; bp 01/16 05:33 Weight 90 kg (R); Height 5 ft. 5 in. (165.10 cm) (R); bb 05:33 Body Mass Index 33.02 (90.00 kg, 165.10 cm) bb NIH Stroke Scale Scores: 05:47 NIHSS Score: 15 kc4 MDM: 01/15 22:59 Differential diagnosis: hypertensive crisis, Malignant HTN, CVA, intracerebral mh7 hemorrhage. Data reviewed: vital signs, nurses notes, old medical records, lab test result(s), cardiac enzymes, CBC, electrolytes, urinalysis, EKG, radiologic studies, CT scan, plain films. Data interpreted: Pulse oximetry: on room air is 100 %. Interpretation: normal. Counseling: I had a detailed discussion with the patient and/or guardian regarding: the historical points, exam findings, and any diagnostic results supporting the discharge/admit diagnosis, the presence of at least one elevated blood pressure reading (>120/80) during this emergency department visit, lab results, radiology results, the need for outpatient follow up, to return to the emergency department if symptoms worsen or persist or if there are any questions or concerns that arise at home. Response to treatment: the patient's symptoms have markedly improved after treatment, Nj=911/89. 23:03 Patient medically screened. mh7 01/15 14:59 Order name: Basic Metabolic Panel; Complete Time: 17:42 kb 01/15 14:59 Order name: CBC with Diff; Complete Time: 17:42 kb 01/15 14:59 Order name: LFT's; Complete Time: 17:42 kb 01/15 14:59 Order name: Magnesium; Complete Time: 17:42 kb 01/15 14:59 Order name: NT PRO-BNP; Complete Time: 17:42 kb 01/15 14:59 Order name: PT-INR; Complete Time: 17:42 kb 01/15 14:59 Order name: Troponin (emerg Dept Use Only); Complete Time: 17:42 kb 01/15 22:52 Order name: Urine Dipstick-Ancillary; Complete Time: 22:53 [facility] 01/16 03:05 Order name: COVID-19 : Document "Date of Symptom Onset" if Symptomatic. [facility] 01/16 03:15 Order name: CORONAVIRUS [facility] 01/16 04:06 Order name: SARS-COV-2 RT PCR; Complete Time: 05:19 [facility] 01/16 05:59 Order name: CBC with Automated Diff [facility] 01/16 06:08 Order name: Comprehensive Metabolic Panel [facility] 01/16 06:08 Order name: T4 Free [facility] 01/15 14:59 Order name: XRAY Chest (1 view); Complete Time: 17:42 kb 01/15 14:59 Order name: EKG; Complete Time: 15:00 kb 01/15 14:59 Order name: Cardiac monitoring; Complete Time: 16:25 kb 01/15 14:59 Order name: EKG - Nurse/Tech; Complete Time: 16:25 kb 01/15 14:59 Order name: IV Saline Lock; Complete Time: 17:50 kb 01/15 14:59 Order name: Labs collected and sent; Complete Time: 17:50 kb 01/15 14:59 Order name: O2 Per Protocol; Complete Time: 16:25 kb 01/15 20:30 Order name: CT Head Brain wo Cont; Complete Time: 21:31 [facility] 01/16 00:59 Order name: CT Head Angio [facility] 01/16 00:59 Order name: Neck Angio CT [facility] 01/16 06:08 Order name: Magnesium [facility] 01/16 06:08 Order name: Thyroid Stimulating Hormone [facility] 01/15 14:59 Order name: O2 Sat Monitoring; Complete Time: 16:25 kb 01/15 20:38 Order name: Urine Dipstick-Ancillary (obtain specimen); Complete Time: 00:25 mh7 01/16 00:56 Order name: Swallow Screen; Complete Time: 01:18 la1 01/16 00:56 Order name: Misc. Order: document NIH score la1 EC/18 08:13 Rate is 73 beats/min. Rhythm is irregularly irregular, A fib with No ectopy. QRS [place] kdr is Normal. SC interval is normal. QRS interval is normal. Clinical impression: Atrial Fibrillation. Administered Medications: 01/15 18:00 Drug: cloNIDine 0.1 mg Route: PO; bp 19:22 Follow up: Response: No adverse reaction bp 18:50 Drug: amLODIPine 10 mg Route: PO; bp 19:23 Follow up: Response: No adverse reaction bp 01/16 01:18 Drug: foLIC Acid 1 mg Route: IVPB; Site: right antecubital; bs2 01:38 Follow up: IV Status: Completed infusion bs2 01:42 Drug: Aspirin Chewable Tablet 324 mg Route: PO; bs2 Disposition Summary: 01/16/21 00:18 Hospitalization Ordered Hospitalization Status: Observation [facility] Provider: Hong Iqbal [facility] Condition: Stable(01/16/21 00:18) [facility] Problem: new(01/16/21 00:18) [facility] Symptoms: have improved(01/16/21 00:18) [facility] Bed/Room Type: Standard [facility] Location: [facility] ER HOLD(01/16/21 00:23) Room Assignment: ERHOLD-(01/16/21 00:23) cg Diagnosis - Uncontrolled Hypertension [facility] - Weakness - generalized(01/16/21 00:18) [facility] Forms: - Medication Reconciliation Form [facility] - SBAR form [facility] NIH Stroke Scale - NIH Stroke Score Date: 01/16/2021 Time: 05:47 Total Score = 15 1a. Level of Consciousness (LOC) - 0(Alert) 1b. Level of Consciousness (LOC) (Month \\T\\ Age) - 0(Both) 1c. LOC Commands (Open \\T\\ Closes Eyes/Personnel Consultant) - 1(One) 2. Best Gaze (Lateral Gaze Paresis) - 1(Partial gaze palsy) 3. Visual Field Loss - 2(Complete hemianopia) 4. Facial Palsy - 2(Partial paralysis) 5a. Left Arm: Motor (10-second hold) - 1(Drift) 5b. Right Arm: Motor (10-second hold) - 0(No drift) 6a. Left Leg: Motor (5-second hold - always test supine) - 3(No effort against gravity) 6b. Right Leg: Motor (5-second hold - always test supine) - 2(Drift, some effort against gravity) 7. Limb Ataxia (finger/nose \\T\\ heel/puckett - test with eyes open) - 1(Present in one limb) 8. Sensory Loss (pinprick arms/legs/face) - 1(Mild to moderate loss) 9. Best Language: Aphasia (description/naming/reading) - 0(No aphasia) 10. Dysarthria (speech clarity - read or repeat words) - 0(Normal) 11. Extinction and Inattention (visual/tactile/auditory/spatial/personal) - 1(Present) Initials: kc4 Signatures: Dispatcher [employer] EDMS Abigail Valencia, BIOMATHEMATICIAN-C BIOMATHEMATICIAN-Ckb Dutch James MD MD [facility] Bessie Epps RN RN iw Chinedu Mcclellan BIOMATHEMATICIAN-C BIOMATHEMATICIAN-Cla1 Pooja Quiroz RN RN Elian Jarvis RN RN bp Holmes, Maurice, MD MD [facility] Vicki Bliss, RN RN bs2 Corrections: (The following items were deleted from the chart) 01/15 20:35 20:05 Associated signs and symptoms: Pertinent positives: headache, After [facility] accidentally hitting her head against her cane 3 days ago, Pertinent negatives: chest pain, dizziness, dyspnea, lightheadedness, nausea, visual changes, vomiting, weakness, [facility] 01/16 00:01/15 23:03 Home [place] [id number] 01/16 00:01/15 23:03 an acute exacerbation [place] [address] 01/16 00:01/15 23:03 have improved [place] [address] 01/16 00:01/15 23:03 Stable [place] [address] 01/16 00:01/15 23:03 Essential (primary) hypertension - Medication Noncompliance [place] [address] 01/16 00:16 01/15 23:03 Weakness - Generalized mh7 mh7 01/16 00:18 Telemetry/MedSurg (observation) mh7 cg 00:18 mh7
--- NOTE | 2021-01-16 01:15 | P.HP ---
Certification for Inpatient Patient admitted to: Inpatient With expected LOS: >2 Midnights Patient will require the following post-hospital care: None Practitioner: I am a practitioner with admitting privileges, knowledge of patient current condition, hospital course, and medical plan of care. Services: Services provided to patient in accordance with Admission requirements found in Title 42 Section 412.3 of the Code of Federal Regulations Patient History Date of Service: 01/16/21 Primary Care Provider: Dr. Ochoa Reason for admission: Altered mental status, weakness, hypertension History of Present Illness: 75-year-old -[place] female with history of CVA/TIA, hypertension, hyperlipidemia, atrial fibrillation on chronic anticoagulation therapy presented to the emergency department for hypertension, altered mental status. Patient reports that this afternoon patient was having difficulty walking he noticed began around noon on 01/15/2021, somebody came by to check her blood pressure and noted it was elevated around 200 systolic. Patient also not acting right and very sleepy per . Upon arrival to the emergency department patient was evaluated labs are significant for BNP 1218 chest x-ray unremarkable urinalysis negative. Blood pressure was treated with amlodipine p.o. and came down some to around 170-180 systolic but patient was still not acting up her who was concerned and wished for patient to be further evaluated. When I saw the patient in the emergency department she was awake, alert, oriented x3, patient appears drowsy does not seem to fully understand was going on around her, patient with some neglect to the left side neurological exam is difficult as she is not able to easily follow commands. Capsule Filling Machine Operator strengths equal bilaterally, patient with dysmetria bilaterally with [id number] test 4/5 strength bilaterally in all extremities. CT head brain without contrast negative for any acute findings, patient reportedly had recent hospitalization on 01/05/2021 and was diagnosed with TIA at [facility] for couple days and was discharged. Patient does take Xarelto for atrial fibrillation, will have staff obtain records from hospitalization at [facility]. Will admit for further evaluation and management. Allergies No Known Allergies Allergy (Verified 02/24/14 10:59) Home Medications: Amlodipine [Norvasc*] 5 mg PO DAILY 05/24/19 Bupropion *Xl* [Wellbutrin XL*] 300 mg PO DAILY 05/24/19 Duloxetine [Cymbalta *] 30 mg PO DAILY 05/24/19 Metoprolol Tartrate [Lopressor*] 25 mg PO BID 05/24/19 Rivaroxaban [Xarelto] 20 mg PO BEDTIME 05/24/19 Rosuvastatin [Crestor*] 10 mg PO BEDTIME 05/24/19 Spironolactone 25 ng PO BID 30 Days tablet 05/25/19 - Past Medical/Surgical History Diabetic: No -: hypertension -: High Cholesterol -: Atrial fibrillation on chronic anticoagulation therapy -: CVA -: r hip repair/fx Psychosocial/ Personal History: Patient lives at home with her - Family History Father -: Diabetes - Social History Smoking Status: Never smoker Alcohol use: No CD- Drugs: No Caffeine use: No Place of Residence: Home Review of Systems 10-point ROS is otherwise unremarkable General: Weakness, Malaise Physical Examination - Physical Exam General: Alert, In no apparent distress, Oriented x3, Other (Drowsy) HEENT: Atraumatic Neck: Supple Respiratory: Clear to auscultation bilaterally, Normal air movement Cardiovascular: No edema, Irregular heart rate/rhythm (A. fib, rate controlled) Capillary refill: <2 Seconds Gastrointestinal: Normal bowel sounds Musculoskeletal: No swelling, No contractures, No erythema Neurological: Normal speech, Normal tone, Sensation intact, Abnormal strength (Strength 4 out of 5 in all extremities), Abnormal cranial nerve function (Patient with dysmetria with [id number] test, unable to test with legs given weakness, patient with neglect of the left side) - Studies Laboratory Data (last 24 hrs) 01/15/21 16:50: PT 12.4, INR 1.08 01/15/21 16:50: WBC 8.00, Hgb 15.0, Hct 46.2 H, Plt Count 255 01/15/21 16:50: Sodium 142, Potassium 4.0, BUN 10, Creatinine 0.97, Glucose 101, Magnesium 2.2, Total Bilirubin 0.6, AST 21, ALT 19, Alkaline Phosphatase 94 Assessment and Plan - Plan Assessment: Altered mental status, dysmetria, weakness, neglect-recent TIA versus CVA Hypertension Atrial fibrillation on chronic anticoagulation therapy Hyperlipidemia Plan: Altered mental status, dysmetria, weakness, neglect-recent TIA versus CVA: We will perform swallow screen, NIH stroke scale, patient with recent hospitalization 01/05/2021 at [facility], patient and report that the MRI was negative at that time and was told she had a TIA. Patient on Xarelto at home. states symptoms started on 01/15/2021 at around noon but cannot be completely sure when he noted she was having difficulty walking and blood pressure was measured to be very high. Patient evaluated emergency room and CT head brain negative for any acute findings, CT angio head and neck pending. N.p.o. unless passes swallow screen, speech therapy, physical therapy, neurology consulted. We will need to obtain records from hospitalization at [facility], nursing order in place. Echo/MRI ordered not likely be completed until Monday. Appreciate further input from neurology. Hypertension: We will allow for some permissive hypertension given possibility o f CVA, continue patient's home medications. Atrial fibrillation on chronic anticoagulation therapy: Continue Xarelto if patient passes swallow screen if not will anticoagulate with Lovenox. Hyperlipidemia: Continue medications DVT PPX: Xarelto Code status: Full Discharge Plan: Home Plan to discharge in: 48 Hours - Advance Directives Does patient have a Living Will: No Does patient have a Durable POA for Healthcare: No - Code Status/Comfort Care Code Status Assessed: Yes (FC) Critical Care: No Time Spent Managing Pts Care (In Minutes): 55
[2021-01-16] MEDS ORDERED: FOLIC ACID 5 MG/ML VIAL ONE (01:38)
[2021-01-16] MEDS ORDERED: ASPIRIN 81 MG CHEWABLE TABLET ONE (02:05)
[2021-01-16] MEDS ORDERED: D5 0.45 NS 1,000 ML IV SCH (03:31)
[2021-01-16] MEDS ORDERED: ONDANSETRON 4 MG/2 ML VIAL IV PRN (03:31)
[2021-01-16] MEDS ORDERED: D5 0.45 NS 1,000 ML IV ONE (04:12)
[2021-01-16 05:54] LABS: Absolute Lymphocytes (CBC) 1.2 K/uL (0.7-4.9); Basophils % 0.6 % (0-1.3); Hematocrit 42.9 % (36.0-45.0); Lymphocytes % 13.6 % (15.3-44.8); MPV 8.4 fL (7.6-11.3); RBC Red Blood Cell Count 4.54 M/uL (3.86-4.86)
--- NOTE | 2021-01-16 05:58 | P.DS ---
Admission Date: 01/16/21 Discharge Date: 01/16/21 Primary Care Provider: Dr. Ochoa Discharge Condition: SERIOUS Reason for Admission: Altered mental status, weakness, hypertension Consultations: Dr. Polk neurology Procedures: CXR FINDINGS: Upper lobe vessels are prominent indicative of pulmonary venous hypertension. The lungs appear clear of acute infiltrate. The heart is mildly enlarged Scoliosis involves the spine TECHNIQUE: Computed axial tomography of the head was obtained. IV contrast was not requested. All CT scans are performed using dose optimization technique as appropriate and may include automated exposure control or mA/KV adjustment according to patient size. FINDINGS: An intracranial bleed is not seen . The ventricles are normal in caliber. No extra-axial fluid collection is noted. A 13 millimeter low-density area within the white matter of the right parietal lobe has the appearance of an old infarction. . Fluid within the sinuses/ mastoids is not seen. IMPRESSION: No acute intracranial abnormality is seen. If patient's symptoms persist MRI of the brain would be recommended. Brief History of Present Illness: 75-year-old -[place] female with history of CVA/TIA, hypertension, hyperlipidemia, atrial fibrillation on chronic anticoagulation therapy presented to the emergency department for hypertension, altered mental status. Patient reports that this afternoon patient was having difficulty walking he noticed began around noon on 01/15/2021, somebody came by to check her blood pressure and noted it was elevated around 200 systolic. Patient also not acting right and very sleepy per . Upon arrival to the emergency department patient was evaluated labs are significant for BNP 1218 chest x-ray unremarkable urinalysis negative. Blood pressure was treated with amlodipine p.o. and came down some to around 170-180 systolic but patient was still not acting up her who was concerned and wished for patient to be further evaluated. When I saw the patient in the emergency department she was awake, alert, oriented x3, patient appears drowsy does not seem to fully understand was going on around her, patient with some neglect to the left side neurological exam is difficult as she is not able to easily follow commands. Commodity Manager strengths equal bilaterally, patient with dysmetria bilaterally with [id number] test 4/5 strength bilaterally in all extremities. CT head brain without contrast negative for any acute findings, patient reportedly had recent hospitalization on 01/05/2021 and was diagnosed with TIA at [facility] stay for couple days and was discharged. Patient does take Xarelto for atrial fibrillation, will have staff obtain records from hospitalization at [facility]. Will admit for further evaluation and management. 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 Case was admittedly discussed with neurology who recommended transfer to tertiary center for vascular evaluation and intervention. Transfer was initiated [facility] who accepted patient to the neuro ICU. General: Alert, Oriented x2 HEENT: Atraumatic Neck: Supple Respiratory: Clear to auscultation bilaterally, Normal air movement Cardiovascular: Irregular heart rate/rhythm Capillary refill: <2 Seconds Gastrointestinal: Normal bowel sounds, Soft and benign Musculoskeletal: No contractures, No erythema Integumentary: No tenderness/swelling, No erythema Neurological: Other (NIH 15, Left hemianopia), Abnormal speech, Abnormal cranial nerve function Laboratory Data at Discharge: WBC 8.00 K/uL (4.3-10.9) 01/15/21 16:50 Hgb 15.0 g/dL (12.0-15.0) 01/15/21 16:50 Hct 46.2 % (36.0-45.0) H 01/15/21 16:50 Plt Count 255 K/uL (152-406) 01/15/21 16:50 PT 12.4 SECONDS (9.5-12.5) 01/15/21 16:50 INR 1.08 01/15/21 16:50 Sodium 142 mmol/L (136-145) 01/15/21 16:50 Potassium 4.0 mmol/L (3.5-5.1) 01/15/21 16:50 BUN 10 mg/dL (7-18) 01/15/21 16:50 Creatinine 0.97 mg/dL (0.55-1.3) 01/15/21 16:50 Glucose 101 mg/dL (74-106) 01/15/21 16:50 Magnesium 2.2 mg/dL (1.8-2.4) 01/15/21 16:50 Total Bilirubin 0.6 mg/dL (0.2-1.0) 01/15/21 16:50 AST 21 U/L (15-37) 01/15/21 16:50 ALT 19 U/L (12-78) 01/15/21 16:50 Alkaline Phosphatase 94 U/L (45-117) 01/15/21 16:50 Home Medications: Amlodipine [Norvasc*] 5 mg PO DAILY 05/24/19 Bupropion *Xl* [Wellbutrin XL*] 300 mg PO DAILY 05/24/19 Duloxetine [Cymbalta *] 30 mg PO DAILY 05/24/19 Metoprolol Tartrate [Lopressor*] 25 mg PO BID 05/24/19 Rivaroxaban [Xarelto] 20 mg PO BEDTIME 05/24/19 Rosuvastatin [Crestor*] 10 mg PO BEDTIME 05/24/19 Spironolactone 25 ng PO BID 30 Days tablet 05/25/19 Physician Discharge Instructions: Please continue with care at [facility] neuro ICU Followup: Vasile Ochoa MD [Primary Care Provider] - Time spent managing pt's care (in minutes): 55
[2021-01-16] MEDS ORDERED: METOPROLOL TAR 25 MG TAB PO SCH (06:00)
[2021-01-16 06:06] LABS: ALT/SGPT 12 U/L (12-78); AST/SGOT 15 U/L (15-37); Albumin 3.3 g/dL (3.4-5.0); Alkaline Phosphatase 80 U/L (45-117); BUN Blood Urea Nitrogen 8 mg/dL (7-18); Bicarbonate 25 mmol/L (21-32); Bilirubin Total 0.7 mg/dL (0.2-1.0); Glucose Level 129 mg/dL (74-106); Potassium 3.2 mmol/L (3.5-5.1); Protein, Total 7.7 g/dL (6.4-8.2); Sodium Level 138 mmol/L (136-145); Thyroid Stimulating Hormone 0.992 uIU/mL (0.360-3.740)
[2021-01-16 07:00] VITALS: TEMP 97.4
[2021-01-16 07:04] VITALS: O2SAT 100
[2021-01-16 07:05] VITALS: BP 214/98
[2021-01-16] MEDS ORDERED: AMLODIPINE 10 MG TAB PO SCH (09:00)
[2021-01-16] MEDS ORDERED: FOLIC ACID 1 MG TABLET PO SCH (09:00)
--- NOTE | 2021-01-16 14:31 | RAD REPORT ---
EXAM DESCRIPTION: CT - Head angio - 01/16/2021 6:37 am ADDENDUM #1 THIS REPORT CONTAINS FINDINGS THAT MAY BE CRITICAL TO PATIENT CARE: The findings were communicated via telephone conference with Dr. Gallego on 01/16/2021 2:35 AM CDT. The results were acknowledged and understood. Electronically signed by: Willem Jensen MD 01/16/2021 7:53 AM CDT End of Addendum EXAM DESCRIPTION: CTA Head and Neck COMPARISON: CT head January 15, 2021 CLINICAL HISTORY: [facility] MAIN AMS TECHNIQUE: CTA of the head and neck was performed with IV contrast. Multiplanar reformats were obtai pop. MIPS reformats are provided. Automated exposure control was utilized on the exam as a dose lower ing technique. HEAD FINDINGS: Anterior circulation: The cavernous internal carotid arteries are not well visualiz ed due to artifact. The anterior cerebral arteries are not well-visualized, however likely patent. Le ft middle cerebral artery is not well-visualized but appears to be grossly patent based on MIPS image s. The right middle cerebral artery is not well-visualized but several branches are seen to be patent based on MIPS imaging. No anterior circulation aneurysms. Posterior circulation: The visualized distal vertebral arteries are patent to the vertebrobasilar j unction. Patent basilar artery and left posterior cerebral artery. The right posterior cerebral arter y is not well-visualized and may be occluded. No posterior circulation aneurysms. Visualized dural venous sinuses: Patent. Other findings: The visualized brain parenchyma is unremarkable. Visualized portions of the orbits, sinuses, mastoids, and skull base are unremarkable. NECK FINDINGS: Cervical-cerebral arch: The left common carotid artery arises from the right brachioc ephalic artery. 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 RIGHT carotid system: The common carotid artery is patent. There is occlusion of the internal carotid artery on series 402 image 126. The external carotid artery is patent. Atherosclerotic plaque is pre sent at the carotid bifurcation. No evidence of dissection. The estimated internal carotid stenosis by NASCET criteria is 100%. LEFT carotid system: 30% narrowing of the common carotid artery on series 402 image 76. Near-complete occlusion of the proximal left internal carotid artery on series 402 image 119. The external carotid artery is patent. Atherosclerotic plaque is present at the carotid bifurcation. No evidence of disse ction. The estimated internal carotid stenosis by NASCET criteria is 95%. Vertebral arteries: 75% stenosis of the proximal right vertebral artery at the origin, series 402 kvng ge 41. 60% stenosis of the proximal left vertebral artery, series 402 image 60. No evidence for disse ction or aneurysm. Thyroid Gland: Normal. Cervical soft tissues, upper chest and osseous structures: Groundglass opacities are noted in the l ungs. Cervical spondylosis. HEAD IMPRESSION: *Limited exam due to severe motion artifact. Poor visualization of the middle cerebral arteries, anterior cerebral artery, and right posterior cer ebral artery. While these appear to have some patent branches, some branches are not definitively vis ualized. NECK IMPRESSION: 1. 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 2. Near-complete occlusion of the proximal left internal carotid artery. 3. 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 4. 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 5. Groundglass opacities in the lungs may be due to air-trapping or pneumonia. COMMENT: All internal carotid artery stenoses are calculated based on NASCET criteria. Electronically signed by: Willem Jensen MD 01/16/2021 2:11 AM CDT Due to temporary technical issues with the PACS/Fluency reporting system, reports are being signed by the in house radiologists without review as a courtesy to insure prompt reporting. The interpreting radiologist is fully responsible for the content of the report.
--- NOTE | 2021-01-16 14:33 | RAD REPORT ---
EXAM DESCRIPTION: CT - Neck Angio - 01/16/2021 6:36 am ADDENDUM #1 THIS REPORT CONTAINS FINDINGS THAT MAY BE CRITICAL TO PATIENT CARE: The findings were communicated via telephone conference with Dr. Gallego on 01/16/2021 2:35 AM CDT. The results were acknowledged and understood. Electronically signed by: Willem Jensen MD 01/16/2021 7:53 AM CDT End of Addendum EXAM DESCRIPTION: CTA Head and Neck COMPARISON: CT head January 15, 2021 CLINICAL HISTORY: [facility] MAIN AMS TECHNIQUE: CTA of the head and neck was performed with IV contrast. Multiplanar reformats were obtai pop. MIPS reformats are provided. Automated exposure control was utilized on the exam as a dose lower ing technique. HEAD FINDINGS: Anterior circulation: The cavernous internal carotid arteries are not well visualiz ed due to artifact. The anterior cerebral arteries are not well-visualized, however likely patent. Le ft middle cerebral artery is not well-visualized but appears to be grossly patent based on MIPS image s. The right middle cerebral artery is not well-visualized but several branches are seen to be patent based on MIPS imaging. No anterior circulation aneurysms. Posterior circulation: The visualized distal vertebral arteries are patent to the vertebrobasilar j unction. Patent basilar artery and left posterior cerebral artery. The right posterior cerebral arter y is not well-visualized and may be occluded. No posterior circulation aneurysms. Visualized dural venous sinuses: Patent. Other findings: The visualized brain parenchyma is unremarkable. Visualized portions of the orbits, sinuses, mastoids, and skull base are unremarkable. NECK FINDINGS: Cervical-cerebral arch: The left common carotid artery arises from the right brachioc ephalic artery. 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 RIGHT carotid system: The common carotid artery is patent. There is occlusion of the internal carotid artery on series 402 image 126. The external carotid artery is patent. Atherosclerotic plaque is pre sent at the carotid bifurcation. No evidence of dissection. The estimated internal carotid stenosis by NASCET criteria is 100%. LEFT carotid system: 30% narrowing of the common carotid artery on series 402 image 76. Near-complete occlusion of the proximal left internal carotid artery on series 402 image 119. The external carotid artery is patent. Atherosclerotic plaque is present at the carotid bifurcation. No evidence of disse ction. The estimated internal carotid stenosis by NASCET criteria is 95%. Vertebral arteries: 75% stenosis of the proximal right vertebral artery at the origin, series 402 kvng ge 41. 60% stenosis of the proximal left vertebral artery, series 402 image 60. No evidence for disse ction or aneurysm. Thyroid Gland: Normal. Cervical soft tissues, upper chest and osseous structures: Groundglass opacities are noted in the l ungs. Cervical spondylosis. HEAD IMPRESSION: *Limited exam due to severe motion artifact. Poor visualization of the middle cerebral arteries, anterior cerebral artery, and right posterior cer ebral artery. While these appear to have some patent branches, some branches are not definitively vis ualized. NECK IMPRESSION: 1. 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 2. Near-complete occlusion of the proximal left internal carotid artery. 3. 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 4. 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 5. Groundglass opacities in the lungs may be due to air-trapping or pneumonia. COMMENT: All internal carotid artery stenoses are calculated based on NASCET criteria. Electronically signed by: Willem Jensen MD 01/16/2021 2:11 AM CDT Due to temporary technical issues with the PACS/Fluency reporting system, reports are being signed by the in house radiologists without review as a courtesy to insure prompt reporting. The interpreting radiologist is fully responsible for the content of the report.
[2021-01-16] MEDS ORDERED: RIVAROXABAN 10 MG TABLET PO SCH ×2 (17:00)
[2021-01-16] MEDS ORDERED: RIVAROXABAN 15 MG TABLET PO SCH (17:00)
[2021-01-16] MEDS ORDERED: ATORVASTATIN 40 MG TAB PO SCH (21:00)
== END 2021-01-16 06:54 | disposition short-term general hospital (02) ==
LOC: ER 14:28 → UNDOADMIN 01-16 02:18 → ERHOLD 01-16 02:18 → ER 01-16 06:54
DX: I65.23 Occlusion and stenosis of bilateral carotid arteries (principal); I10 Essential (primary) hypertension; R41.82 Altered mental status, unspecified; I48.91 Unspecified atrial fibrillation; E78.5 Hyperlipidemia, unspecified; R27.8 Other lack of coordination; R29.715 NIHSS score 15; W18.09XA Striking against other object with subsequent fall, initial encounter; Y93.01 Activity, walking, marching and hiking; Z79.01 Long term (current) use of anticoagulants; Z83.3 Family history of diabetes mellitus; Z86.73 Personal history of transient ischemic attack (TIA), and cerebral infarction without residual deficits; Z20.822 Contact with and (suspected) exposure to COVID-19
CPT/HCPCS: 96365; 93005; 85025 ×2; 80048; 36415; 83735 ×2; 85610; 80076; 84443; 81003; 84484; 84439; 80053; 83880; 70450; 70496; 70498; 71045; 99284; U0003; Q9967; J7799